=== PATIENT | male | born 1995 | race African-American/Black ===

== ENCOUNTER 2023-02-18 21:44 | Emergency (ER) | payer MEDICARE, SELFPAY ==
--- NOTE | 2023-02-18 | ECG_ITS ---
Test Reason : DYSPNEA Blood Pressure : / mmHG Vent. Rate : 101 BPM Atrial Rate : 101 BPM P-R Int : 148 ms QRS Dur : 088 ms QT Int : 336 ms P-R-T Axes : 042 039 023 degrees QTc Int : 435 ms Sinus tachycardia Nonspecific T wave abnormality Abnormal ECG No previous ECGs available Referred By: Generic ED Physician Electronically Signed By:LENKA SANCHEZ MD
--- NOTE | ~2023-02-18 | XR_ITS ---
EXAMINATION: XR CHEST CLINICAL INFORMATION: Cough COMPARISON: None available. TECHNIQUE: Frontal view of the chest was obtained. FINDINGS: The lungs are well expanded. There is no focal consolidation, edema, or effusion. No pneumothorax. The cardiomediastinal silhouette is within normal limits. No acute osseous abnormality. XR/XR chest 1V IMPRESSION: No acute pulmonary disease.
[2023-02-18 21:55] VITALS: BP 150/87; PULSE 98; O2SAT 97
[2023-02-18 22:30] VITALS: BP 123/72; PULSE 106; RESP 22; TEMP 36; O2SAT 94; BMI 32.1
[2023-02-18 23:35] LABS: MANUAL DIFF FLAG NO
[2023-02-18 23:37] LABS: Basophils Absolute Auto 0.1 X10*3/uL (0.0-0.2); Basophils Percent Auto 1.4 % (0-2); Eosinophils Absolute Auto 0.3 X10*3/uL (0.0-0.4); Eosinophils Percent Auto 4.7 % (0-4); Hematocrit 44.5 % (42.0-52.0); Hemoglobin 13.7 g/dl (14.0-18.0); Imm Gran Abs Auto 0.02 X10*3/uL (0.00-0.03); Imm Gran Pct Auto 0.3 % (0.0-0.4); Lymphocytes Absolute Auto 2.6 X10*3/uL (1.2-4.9); Lymphocytes Percent Auto 35.9 % (20-40); Mean Corpuscular HGB Conc 30.8 g/dl (31.0-36.0); Mean Corpuscular Hemoglobin 26.2 pg (27.0-33.0); Mean Corpuscular Volume 85.2 fL (80.0-98.0); Mean Platelet Volume 10.6 fL (9.4-12.4); Monocytes Absolute Auto 0.6 X10*3/uL (0.1-1.2); Monocytes Percent Auto 7.6 % (2-11); Neutrophils Absolute Auto 3.7 x10*3/uL (2.0-8.3); Neutrophils Percent Auto 50.1 % (45-73); Platelet Count 299 X10*3/uL (160-400); Red Blood Count 5.22 X10*6/uL (4.60-5.80); Red Cell Distribution Width 13.5 % (11.0-16.0); White Blood Count 7.3 X10*3/uL (4.8-10.8)
[2023-02-18 23:52] LABS: Alanine Aminotransferase 32 U/L (0-40); Alkaline Phosphatase 71 U/L (39-117); Anion Gap 15 (12-20); Aspartate Amino Transferase 37 U/L (5-37); Bilirubin Total 0.6 mg/dL (0.0-1.0); Blood Urea Nitrogen 12 mg/dL (9-16); Calcium 9.5 mg/dL (8.4-10.2); Carbon Dioxide 22 mmol/L (22-29); Chloride 102 mmol/L (96-108); Creatinine Clr Calc Pharmacy 136.5; Estimated Glomerular Filt Rate > 60; Glucose Random 246 mg/dL (60-115); Potassium 4.3 mmol/L (3.3-5.1); Sodium 135 mmol/L (135-145); Total Protein 7.5 g/dL (6.5-8.0)
[2023-02-19 03:23] VITALS: BP 115/75; PULSE 96; RESP 16; TEMP 36.6; O2SAT 98
[2023-02-19 03:28] LABS: Glucose, Whole Blood 208 mg/dL (60-115)
--- NOTE | 2023-02-19 03:44 | ED.URI ---
HPI - URI/Sore Throat General Chief Complaint: Dyspnea Stated Complaint: chest pain and throat pain, pt is deaf, per ems Time Seen by Provider: 02/19/23 03:43 Source: patient Mode of arrival: ambulatory Limitations: language barrier History of Present Illness HPI Narrative: Patient with history of diabetes hypertension asthma out of his inhaler been coughing for last 1 month says nothing works for him cough is mostly dry fissured has gained about 20 lb in the last few months denies any sleep apnea no fever no chills Related Data Previous Rx's Medication Instructions Recorded albuterol sulfate 90 mcg/actuation 2 puff inhalation Q4-6H PRN 02/19/23 aerosol inhaler (ProAir HFA) bronchospasm #8.5 grams benzonatate 200 mg capsule 200 mg PO TID PRN cough #30 caps 02/19/23 prednisone 20 mg tablet 40 mg PO DAILY #10 tabs 02/19/23 Allergies Allergy/AdvReac Type Severity Reaction Status Date / Time No Known Allergies Allergy Verified 02/18/23 22:46 Review of Systems Review of Systems: Yes all other systems are reviewed and are negative [facility] Social History Social History Alcohol intake: never Smoked in Last 30 Days: No Use of substances other than those prescribed or required for medical reasons: No Advance Directives: No Advance Directives Information Provided: Yes Physical Exam Vital Signs: Vital Signs: Last Vital Signs Temp 98.8 F 02/19/23 05:10 Pulse 100 02/19/23 05:10 Resp 18 02/19/23 05:10 BP 127/87 02/19/23 05:10 Pulse Ox 98 02/19/23 05:10 O2 Del Method Room Air 02/19/23 05:10 BMI result Body Mass Index 32.1 Appearance: Alert. Oriented X3. No acute distress. Eyes: PERRLA, No Nystagmus ENT: Pharynx normal. Oral Mucosa moist Neck: Normal inspection. Neck supple. CVS: Normal heart rate and rhythm. Pulses normal. Respiratory: No respiratory distress. Equal air entry bilateral, prolonged expiration no rales frequent dry cough Abdomen: Soft and nontender. Bowel sounds are present, no mass palpable, no CVA tenderness Skin: Skin warm and dry. Normal skin color. Normal skin turgor. Extremities: No lower extremity edema. No calf tenderness Neuro: Oriented X 3. Medications Administered Discontinued Medications Generic Name Dose Route Start Last Admin Trade Name Jeronimo PRN Reason Stop Dose Admin Albuterol Sulfate 5 mg 02/19/23 03:44 02/19/23 04:21 Albuterol Sulfate (0.083%) 2.5 Mg/3 Ml Vial.Neb INHALE 02/19/23 03:45 5 mg ONCE ONE Administration Albuterol/Ipratropium 3 ml 02/19/23 03:44 02/19/23 04:21 Albuterol/Iprat 2.5/0.5mg 3 Ml Ampul.Neb INHALE 02/19/23 03:45 3 ml ONCE ONE Administration Guaifenesin/Codeine Phosphate 10 ml 02/19/23 03:45 02/19/23 04:00 Guaifen/Codeine Sf 200/20/10ml 10 Ml Liquid PO 02/19/23 03:46 10 ml ONCE ONE Administration Prednisone 60 mg 02/19/23 03:44 02/19/23 04:00 Prednisone 20 Mg Tablet PO 02/19/23 03:45 60 mg ONCE ONE Administration Medical Decision Making Medical Decision Making MDM Narrative: Patient acute asthmatic bronchitis chest x-ray labs are stable discharge patient home on prednisone and albuterol inhaler Lab Data [facility] Lab Attestation statement: I reviewed the patient's lab results. 02/18/23 23:29 02/18/23 23:29 Labs: Lab Results 02/18/23 02/18/23 02/19/23 Range/Units 23:29 23:29 03:22 WBC 7.3 (4.8-10.8) X10*3/uL RBC 5.22 (4.60-5.80) X10*6/uL Hgb 13.7 L (14.0-18.0) g/dl Hct 44.5 (42.0-52.0) % MCV 85.2 (80.0-98.0) fL MCH 26.2 L (27.0-33.0) pg MCHC 30.8 L (31.0-36.0) g/dl RDW 13.5 (11.0-16.0) % Plt Count 299 (160-400) X10*3/uL MPV 10.6 (9.4-12.4) fL Immature Gran % (Auto) 0.3 (0.0-0.4) % Neut % (Auto) 50.1 (45-73) % Lymph % (Auto) 35.9 (20-40) % Day % (Auto) 7.6 (2-11) % Eos % (Auto) 4.7 H (0-4) % Baso % (Auto) 1.4 (0-2) % Lymph # (Auto) 2.6 (1.2-4.9) X10*3/uL Day # (Auto) 0.6 (0.1-1.2) X10*3/uL Eos # (Auto) 0.3 (0.0-0.4) X10*3/uL Baso # (Auto) 0.1 (0.0-0.2) X10*3/uL Abs Immat Gran (auto) 0.02 (0.00-0.03) X10*3/uL Absolute Neuts (auto) 3.7 (2.0-8.3) x10*3/uL Absolute Nucleated RBC 0.000 (0.0-0.012) X10*3/uL Nucleated RBC % (auto) 0.0 (0.0-0.2) /100WBC Sodium 135 (135-145) mmol/L Potassium 4.3 (3.3-5.1) mmol/L Chloride 102 (96-108) mmol/L Carbon Dioxide 22 (22-29) mmol/L Anion Gap 15 (12-20) BUN 12 (9-16) mg/dL Creatinine 0.99 (0.5-1.4) mg/dL Estim Creat Clear Calc 136.5 Estimated GFR > 60 POC Glucose 208 H (60-115) mg/dL Random Glucose 246 H (60-115) mg/dL Calcium 9.5 (8.4-10.2) mg/dL Total Bilirubin 0.6 (0.0-1.0) mg/dL AST 37 (5-37) U/L ALT 32 (0-40) U/L Alkaline Phosphatase 71 (39-117) U/L Total Protein 7.5 (6.5-8.0) g/dL Albumin 4.0 (3.5-5.0) g/dL Discharge Plan Discharge Clinical Impression: Acute asthmatic bronchitis Patient Disposition: Home, Self-Care Instructions: Acute Bronchitis (ED) Additional Instructions: Use inhaler as prescribed Prednisone as prescribed Your blood sugar may go high take insulin continue sliding scale Cough drops as prescribed Prescriptions: New albuterol sulfate [ProAir HFA] 90 mcg/actuation HFA aerosol inhaler 2 puff inhalation Q4-6H PRN (Reason: bronchospasm) Qty: 8.5 0RF benzonatate 200 mg capsule 200 mg PO TID PRN (Reason: cough) Qty: 30 0RF prednisone 20 mg tablet 40 mg PO DAILY Qty: 10 0RF Stand Alone Forms: Work/School Release
[2023-02-19] MEDS: predniSONE 20 MG TABLET 60 MG PO (04:00)
[2023-02-19] MEDS: guaiFEN/Codeine SF 200/20/10ML 10 ML LIQUID PO (04:00)
--- NOTE | 2023-02-19 04:01 | PC.NURSE ---
patient in bed with eyes open patient showing no distress at this time patient received all medications with no issues respiratory was notified about tje patient needing a breathing treatment safety will continue to be monitored for safety
[2023-02-19] MEDS: Albuterol/Iprat 2.5/0.5MG 3 ML AMPUL.NEB INHALE (04:21)
[2023-02-19] MEDS: Albuterol Sulfate (0.083%) 2.5 MG/3 ML VIAL.NEB 5 MG INHALE (04:21)
[2023-02-19 04:22] VITALS: PULSE 101; RESP 20; O2SAT 97
[2023-02-19 05:10] VITALS: BP 127/87; PULSE 100; RESP 18; TEMP 37.1; O2SAT 98
== END 2023-02-19 05:54 | disposition home or self-care (01) ==
PROVIDERS: Emergency Provider Internal Medicine
DX: J20.9 Acute bronchitis, unspecified (principal); E11.9 Type 2 diabetes mellitus without complications; I10 Essential (primary) hypertension; Z79.899 Other long term (current) drug therapy
CPT/HCPCS: 36415; 71045; 80053; 82947; 85025; 93005; 94640; 99284; 99285

== ENCOUNTER → 2023-02-18 23:13 | Outpatient (BNV) | payer MEDICARE, SELFPAY | PROVIDERS: Emergency Provider Internal Medicine; Visit Provider Internal Medicine Cardiovascular Disease | DX: R06.00 Dyspnea, unspecified (principal) | CPT/HCPCS: 93010 ==

== ENCOUNTER 2023-03-22 09:16 | Emergency (ER) | payer MEDICARE, MEDICAID, SELFPAY ==
--- NOTE | ~2023-03-22 | CT_ITS ---
EXAMINATION: CT ANGIOGRAM OF THE CHEST WITH AND WITHOUT CONTRAST (CT PULMONARY ANGIOGRAM FOR PE) CLINICAL INFORMATION: Reason for Exam cp,sob hx of pe COMPARISON: None available. TECHNIQUE: Prior to contrast administration, noncontrast localization images were obtained. Subsequently, multidetector volumetric imaging was performed from the thoracic inlet to below the diaphragms following the administration of 80 mL Omnipaque 350 intravenous contrast. No contrast reaction reported Sagittal, coronal, and MIP oblique sagittal reformatted images were obtained on the CT workstation, uploaded to PACS, and reviewed. This CT examination was performed using dose optimization techniques as appropriate, variously including the following: *Automated exposure control *Adjustment of mA and/or kV according to patient size (this includes techniques or standardized protocols for targeted exams where dose is matched to indication/reason for exam; i.e. extremities or head) *Use of iterative reconstruction technique Total exam dose-length product mGy-cm FINDINGS: QUALITY OF STUDY/CONTRAST BOLUS: Limited due to late timing of IV contrast. PULMONARY ARTERIES: No evidence of large or central pulmonary embolism. Evaluation of smaller segmental and subsegmental pulmonary arteries is not not optimal due to timing of IV contrast. THORACIC AORTA: No aneurysm. LUNG: No focal consolidation, nodules or masses. PLEURA: No pleural effusion or pneumothorax. MEDIASTINUM: Normal heart size. No pericardial effusion. No hilar or mediastinal lymphadenopathy. No evidence of septal bowing or right heart strain. CORONARY ARTERY CALCIFICATION: None visualized on this study. CHEST WALL/AXILLA: No axillary or internal mammary lymphadenopathy. OSSEOUS STRUCTURES: No acute or suspicious osseous abnormality. UPPER ABDOMEN: There may be fatty infiltration of the liver. No reflux of contrast into the hepatic veins to suggest elevated right heart pressures. CT/CT angio chest PE protocol IMPRESSION: No evidence of large or central pulmonary embolism. Exam somewhat limited due to late timing of IV contrast. VTE: negative
[2023-03-22 09:19] VITALS: BP 118/82; PULSE 94; O2SAT 96
[2023-03-22 09:23] VITALS: PULSE 86; RESP 18; TEMP 36.7; O2SAT 97; BMI 37.7
--- NOTE | 2023-03-22 09:26 | ECG_ITS ---
Test Reason : CHEST PX Blood Pressure : / mmHG Vent. Rate : 089 BPM Atrial Rate : 089 BPM P-R Int : 144 ms QRS Dur : 104 ms QT Int : 330 ms P-R-T Axes : 129 132 000 degrees QTc Int : 401 ms Suspect limb lead reversal, interpretation assumes no reversal Unusual P axis, possible ectopic atrial rhythm Lateral infarct , age undetermined Abnormal ECG When compared with ECG of 18-FEB-2023 23:13, Ectopic atrial rhythm has replaced Sinus rhythm QRS axis Shifted right Referred By: Generic ED Physician Electronically Signed By:
--- NOTE | 2023-03-22 09:40 | PC.NURSE ---
video supervisor [employer] and shank department was presented to patient and patient stated he would prefer a in person tool programmer
--- NOTE | 2023-03-22 09:54 | PC.NURSE ---
industrial servicer services contacted to speak to patient abut getting patient an in person industrial servicer, with video industrial servicer. patient aware of situation and that in person industrial servicer is being contacted
--- NOTE | 2023-03-22 10:05 | PC.NURSE ---
reached out to the [place] commission of deaf and hard of hearing, spoke to teleservices representative chari, commission is reaching out to the areas [place] Citizen sign language interpreters on an emergency basis for an in person hourly sign language interpreter. video hourly sign language interpreter is on and at the patients bedside for his needs. phone number called is [phone]. patient has call gonzalez at bedside, explained using video interpretor how to work if patient needs assistance,
--- NOTE | 2023-03-22 10:08 | ED.CHESTPAIN ---
HPI - Chest Pain General Chief Complaint: Chest Pain Stated Complaint: sob Time Seen by Provider: 03/22/23 10:08 Source: patient and EMS Mode of arrival: EMS Limitations: other (government employee use) History of Present Illness HPI narrative: 27-year-old male hx of PE on elqiuis presents with substernal chest pain, shortness of breath started this morning. Chest pain is substernal, nonradiating sudden in onset but has been progressively worsening. Started when he was drinking water this morning after waking up. Reports as a burning/throbbing sensation. Nothing like this has ever happened to him before. Denies nausea, vomiting, abdominal pain, headache, vision changes, dizziness and weakness. Using the iPad recreation instructor however patient requesting an inpatient recreation instructor, nursing trying to work on getting an in-person recreation instructor here. Related Data Previous Rx's Medication Instructions Recorded albuterol sulfate 90 mcg/actuation 2 puff inhalation Q4-6H PRN 02/19/23 aerosol inhaler (ProAir HFA) bronchospasm #8.5 grams benzonatate 200 mg capsule 200 mg PO TID PRN cough #30 caps 02/19/23 prednisone 20 mg tablet 40 mg PO DAILY #10 tabs 02/19/23 aluminum-mag hydroxide-simethicone 5 ml PO 5XD PRN dyspepsia #355 mL 03/22/23 200 mg-200 mg-20 mg/5 mL oral susp (Maalox Advanced) Allergies Allergy/AdvReac Type Severity Reaction Status Date / Time No Known Allergies Allergy Verified 02/18/23 22:46 Review of Systems Review of Systems: Constitutional : No Weight loss, No Fever, No Chills, No Fatigue, No Malaise ENT/Mouth : No sore throat, No Rhinorrhea Eyes: No Eye Pain, No Swelling, No Redness Cardiovascular : + Chest Pain, + SOB, No Dyspnea on Exertion, No Orthopnea, No Edema, No Palpitations Respiratory : No Cough, No Sputum, No Wheezing Gastrointestinal : No Nausea, No Vomiting, No Diarrhea, No Constipation, No abdominal Pain, No Hematochezia, No Melena Genitourinary : No Dysuria, No Urinary Frequency, No Hematuria, Musculoskeletal : No joint pain, No Myalgias, No Joint Swelling Skin : No Skin Lesions, No rash Neuro : No Weakness, No Numbness, No Dizziness, No Headache Psych : No Anxiety/Panic, No Depression All other systems reviewed and are negative Yes all other systems are reviewed and are negative [facility] Past Medical History Attestation statement: The following information was validated with the patient. Source: old records reviewed and nursing notes reviewed Social History Social History Alcohol intake: never Smoked in Last 30 Days: No Use of substances other than those prescribed or required for medical reasons: No Advance Directives: No Advance Directives Information Provided: Yes Physical Exam Vital Signs: Vital Signs: Last Vital Signs Temp 98.4 F 03/22/23 15:04 Pulse 93 03/22/23 15:04 Resp 20 03/22/23 15:04 BP 96/58 L 03/22/23 15:04 Pulse Ox 95 03/22/23 15:04 O2 Del Method Room Air 03/22/23 15:04 BMI result Body Mass Index 37.7 vss Appearance: Alert.? Oriented X3.? No acute distress.? Head: Normocephalic, atraumatic, no step-offs or deformities Eyes: Pupils equal, round and reactive to light.? ENT: Pharynx normal.? Neck: Normal inspection.? Neck supple.? CVS: Normal heart rate and rhythm.? Pulses normal.? Respiratory: No respiratory distress.? Breath sounds normal.? Abdomen: Soft and nontender.? Skin: Skin warm and dry.? Normal skin color.? Normal skin turgor.? Extremities: No lower extremity edema.? No calf ttp. 5/5 strength to bilateral upper and lower extremities Neuro: Oriented X 3.? No motor deficit.? No sensory deficit. CN 2-12 intact Course Course Course Narrative: 1121 In person recreation instructor obtained- Chelsey Barragan in the department at 1121 for inperson ASL interpreting Reevaluation(s) Reevaluation #1: CBC appears to be around patient's baseline. Chemistry unremarkable. Troponin negative, EKG nonischemic unlikely ACS. BNP within normal limits. Patient anticoagulated on Eliquis low suspicion for PE. Unlikely dissection. Time: 11:00 Reevaluation #2: In-patient interpreted ASL arrived, patient now clarifies that the chest pain is substernal in nature, when he arrived pain was 7/10 now pain has improved to 5/10, he reports it goes up and down from the substernal region, not side to side, at times of burning sensation. He reports this started right when he woke up. He has had pain like this before. Patient also concerned about his kidney function because he is a diabetic and he is wondering if his kidney function is okay I explained to him that everything is okay. I took the time to answer all questions patient had with in-person recreation instructor. Patient content. Pending CTA patient aware plan. Time: 11:32 Reevaluation #3: Patient's 2nd troponin negative, patient EKG nonischemic unlikely ACS. CTA with no PTE, no PE noted. Patient anticoagulated. At this time patient will be discharged home. Patient tells me he is feeling much better pain has resolved. Educated patient on diagnosis and treatment plan, answered all question, patient verbalizes understanding. At this time patient will be discharged home, advised to return with new or worsening symptoms. Educated on worrisome signs and symptoms and when to return. At this time I feel comfortable discharge home. Time: 15:19 Medications Administered Discontinued Medications Generic Name Dose Route Start Last Admin Trade Name Pedroq PRN Reason Stop Dose Admin Al Hydroxide/Mg Hydroxide 30 ml 03/22/23 10:09 03/22/23 10:23 Magnesium Hydrox/Alum Hydrox 30 Ml Oral.Susp PO 03/22/23 10:10 30 ml ONCE ONE Administration Iohexol 65 ml 03/22/23 13:15 03/22/23 13:15 Iohexol 350 Mg/Ml 75 Ml Infus..Btl IV 03/22/23 13:16 65 ml ONCE ONE Administration Morphine Sulfate 4 mg 03/22/23 10:24 03/22/23 10:43 Morphine Sulfate 4 Mg/Ml Cartridge IVPUSH 03/22/23 10:25 4 mg ONCE ONE Administration Protocol Medical Decision Making Medical Decision Making [facility] Narrative: 1005 27-year-old male presents with complaints of substernal chest pain, shortness of breath that started this morning. Describes chest pain as burning. An recreation instructor for [place] sign language was used Physical exam benign Likely GERD versus noncardiac related chest pain versus anxiety versus viral illness. Unlikely ACS, PE (perc negative), dissection, ruptured aneurysm, pneumothorax, pneumonia. Plan labs, imaging, EKG. Differential Diagnosis Differential Diagnoses: The differential diagnosis associated with the presentation includes Likely GERD versus noncardiac related chest pain versus anxiety versus viral illness. Unlikely ACS, PE (perc negative), dissection, ruptured aneurysm, pneumothorax, pneumonia. Admission/Observation Consideration of admission/observation: Escalation of care including admission/observation considered Unlikely Lab Data MDM Lab Attestation statement: I reviewed the patient's lab results. 03/22/23 10:17 03/22/23 10:17 Labs: Lab Results 03/22/23 03/22/23 03/22/23 Range/Units 10:17 10:17 10:17 WBC 4.4 L (4.8-10.8) X10*3/uL RBC 5.28 (4.60-5.80) X10*6/uL Hgb 13.9 L (14.0-18.0) g/dl Hct 42.3 (42.0-52.0) % MCV 80.1 (80.0-98.0) fL MCH 26.3 L (27.0-33.0) pg MCHC 32.9 (31.0-36.0) g/dl RDW 14.3 (11.0-16.0) % Plt Count 264 (160-400) X10*3/uL MPV 10.2 (9.4-12.4) fL Immature Gran % (Auto) 0.2 (0.0-0.4) % Neut % (Auto) 48.1 (45-73) % Lymph % (Auto) 36.8 (20-40) % [place] % (Auto) 8.5 (2-11) % Eos % (Auto) 5.3 H (0-4) % Baso % (Auto) 1.1 (0-2) % Lymph # (Auto) 1.6 (1.2-4.9) X10*3/uL [place] # (Auto) 0.4 (0.1-1.2) X10*3/uL Eos # (Auto) 0.2 (0.0-0.4) X10*3/uL Baso # (Auto) 0.1 (0.0-0.2) X10*3/uL Abs Immat Gran (auto) 0.01 (0.00-0.03) X10*3/uL Absolute Neuts (auto) 2.1 (2.0-8.3) x10*3/uL Absolute Nucleated RBC 0.000 (0.0-0.012) X10*3/uL Nucleated RBC % (auto) 0.0 (0.0-0.2) /100WBC Sodium 140 (135-145) mmol/L Potassium 4.1 (3.3-5.1) mmol/L Chloride 108 (96-108) mmol/L Carbon Dioxide 22 (22-29) mmol/L Anion Gap 14 (12-20) BUN 9 (9-16) mg/dL Creatinine 0.96 (0.5-1.4) mg/dL Estim Creat Clear Calc 152.5 Estimated GFR > 60 POC Glucose (60-115) mg/dL Random Glucose 172 H (60-115) mg/dL Calcium 9.7 (8.4-10.2) mg/dL Total Bilirubin 0.6 (0.0-1.0) mg/dL AST 30 (5-37) U/L ALT 31 (0-40) U/L Alkaline Phosphatase 66 (39-117) U/L Troponin I High Sens < 2.7 (<3.5-35.0) ng/L B-Natriuretic Peptide (<100) pg/mL Total Protein 7.3 (6.5-8.0) g/dL Albumin 4.3 (3.5-5.0) g/dL 03/22/23 03/22/23 03/22/23 Range/Units 10:19 13:20 14:08 WBC (4.8-10.8) X10*3/uL RBC (4.60-5.80) X10*6/uL Hgb (14.0-18.0) g/dl Hct (42.0-52.0) % MCV (80.0-98.0) fL MCH (27.0-33.0) pg MCHC (31.0-36.0) g/dl RDW (11.0-16.0) % Plt Count (160-400) X10*3/uL MPV (9.4-12.4) fL Immature Gran % (Auto) (0.0-0.4) % Neut % (Auto) (45-73) % Lymph % (Auto) (20-40) % [place] % (Auto) (2-11) % Eos % (Auto) (0-4) % Baso % (Auto) (0-2) % Lymph # (Auto) (1.2-4.9) X10*3/uL [place] # (Auto) (0.1-1.2) X10*3/uL Eos # (Auto) (0.0-0.4) X10*3/uL Baso # (Auto) (0.0-0.2) X10*3/uL Abs Immat Gran (auto) (0.00-0.03) X10*3/uL Absolute Neuts (auto) (2.0-8.3) x10*3/uL Absolute Nucleated RBC (0.0-0.012) X10*3/uL Nucleated RBC % (auto) (0.0-0.2) /100WBC Sodium (135-145) mmol/L Potassium (3.3-5.1) mmol/L Chloride (96-108) mmol/L Carbon Dioxide (22-29) mmol/L Anion Gap (12-20) BUN (9-16) mg/dL Creatinine (0.5-1.4) mg/dL Estim Creat Clear Calc Estimated GFR POC Glucose 85 (60-115) mg/dL Random Glucose (60-115) mg/dL Calcium (8.4-10.2) mg/dL Total Bilirubin (0.0-1.0) mg/dL AST (5-37) U/L ALT (0-40) U/L Alkaline Phosphatase (39-117) U/L Troponin I High Sens < 2.7 (<3.5-35.0) ng/L B-Natriuretic Peptide < 10 (<100) pg/mL Total Protein (6.5-8.0) g/dL Albumin (3.5-5.0) g/dL Independent Interpretation I performed an independent interpretation of an: EKG (Ventricular rate of 89, MO normal, QRS normal, QT/QTC normal EKG with normal sinus rhythm no ST elevations or inversions concerning for acute ischemia.), Plain X-Ray and CT Scan Radiology Impression Discussion of test interpretation with radiology: I have reviewed the radiologist's reading. Core Measures AMI core measures followed: Yes Measure exclusions: not indicated Critical Care Time Critical Care Time Critical Care Time: Yes Total Critical Care Time: 35 Attestation: I attest to this time spent taking care of the patient, obtaining history, physical, reviewing labs, imaging, speaking to my attending, Discharge Plan Discharge Clinical Impression: Chest pain, Shortness of breath, Gastroesophageal reflux disease Patient Disposition: Still a Patient Instructions: Chest Pain (ED), Gastroesophageal Reflux Disease (ED), Shortness of Breath (ED) Additional Instructions: Take your medications as prescribed. If you were prescribed antibiotics today, it is important that you take your medication to their entirety, do not skip any doses, do not finish them early. Follow-up with your primary care provider this week. Return to the emergency department with new or worsening symptoms. Such as fevers, chills, chest pain, shortness of breath, nausea, vomiting, dizziness, headache, vision changes, lethargy In case of emergency call 911 ?CT/CT angio chest PE protocol IMPRESSION: No evidence of large or central pulmonary embolism. Exam somewhat limited due to late timing of IV contrast. ? VTE: negative Prescriptions: New alum-mag hydroxide-simeth [Maalox Advanced] 200-200-20 mg/5 mL suspension 5 ml PO 5XD PRN (Reason: dyspepsia) Qty: 355 0RF Rx Instructions: administer between meals and at bedtime No Action albuterol sulfate [ProAir HFA] 90 mcg/actuation HFA aerosol inhaler 2 puff inhalation Q4-6H PRN (Reason: bronchospasm) Qty: 8.5 0RF benzonatate 200 mg capsule 200 mg PO TID PRN (Reason: cough) Qty: 30 0RF prednisone 20 mg tablet 40 mg PO DAILY Qty: 10 0RF Referrals: [facility] [place] Cardiovascular Services [Provider Group] - 2 days Physician,Unknown J [Primary Care Provider] - 2 days Stand Alone Forms: Work/School Release
--- NOTE | 2023-03-22 10:10 | MHC.EDTECH ---
patient agreeable to lab work and EKG while in person parking lot spotter being contacted, patient consents to plan of care with video paving crew foreman
--- NOTE | 2023-03-22 10:18 | PC.NURSE ---
patient agreeable to lab work and EKG while in person launch leader being contacted, patient consents to plan of care with video thread clipper
--- NOTE | 2023-03-22 10:18 | PC.NURSE ---
Chelly from [place] [employer] of deaf and hard of hearing, called and spoke to this RN about contacts being made to get patient an in person accountant cost
[2023-03-22 10:23] LABS: Basophils Absolute Auto 0.1 X10*3/uL (0.0-0.2); Basophils Percent Auto 1.1 % (0-2); Eosinophils Absolute Auto 0.2 X10*3/uL (0.0-0.4); Eosinophils Percent Auto 5.3 % (0-4); Hematocrit 42.3 % (42.0-52.0); Hemoglobin 13.9 g/dl (14.0-18.0); Imm Gran Abs Auto 0.01 X10*3/uL (0.00-0.03); Imm Gran Pct Auto 0.2 % (0.0-0.4); Lymphocytes Absolute Auto 1.6 X10*3/uL (1.2-4.9); Lymphocytes Percent Auto 36.8 % (20-40); MANUAL DIFF FLAG NO; Mean Corpuscular HGB Conc 32.9 g/dl (31.0-36.0); Mean Corpuscular Hemoglobin 26.3 pg (27.0-33.0); Mean Corpuscular Volume 80.1 fL (80.0-98.0); Mean Platelet Volume 10.2 fL (9.4-12.4); Monocytes Absolute Auto 0.4 X10*3/uL (0.1-1.2); Monocytes Percent Auto 8.5 % (2-11); Neutrophils Absolute Auto 2.1 x10*3/uL (2.0-8.3); Neutrophils Percent Auto 48.1 % (45-73); Platelet Count 264 X10*3/uL (160-400); Red Blood Count 5.28 X10*6/uL (4.60-5.80); Red Cell Distribution Width 14.3 % (11.0-16.0); White Blood Count 4.4 X10*3/uL (4.8-10.8)
[2023-03-22] MEDS: Magnesium Hydrox/Alum Hydrox 30 ML ORAL.SUSP PO (10:23)
[2023-03-22 10:40] LABS: Alanine Aminotransferase 31 U/L (0-40); Albumin Level 4.3 g/dL (3.5-5.0); Alkaline Phosphatase 66 U/L (39-117); Anion Gap 14 (12-20); Aspartate Amino Transferase 30 U/L (5-37); Bilirubin Total 0.6 mg/dL (0.0-1.0); Blood Urea Nitrogen 9 mg/dL (9-16); Calcium 9.7 mg/dL (8.4-10.2); Carbon Dioxide 22 mmol/L (22-29); Chloride 108 mmol/L (96-108); Creatinine Clr Calc Pharmacy 152.5; Estimated Glomerular Filt Rate > 60; Glucose Random 172 mg/dL (60-115); Potassium 4.1 mmol/L (3.3-5.1); Sodium 140 mmol/L (135-145); Total Protein 7.3 g/dL (6.5-8.0)
[2023-03-22] MEDS: Morphine Sulfate 4 MG/ML CARTRIDGE IVPUSH (10:43)
--- NOTE | 2023-03-22 10:46 | PC.NURSE ---
IV line placed with ASL video manager copy at bedside
[2023-03-22 10:48] LABS: Troponin-I High Sensitivity < 2.7 ng/L (<3.5-35.0)
[2023-03-22 10:48] LABS: B Type Natriuretic Peptide < 10 pg/mL (<100)
--- NOTE | 2023-03-22 10:53 | PC.NURSE ---
sales and management trainee services notified this RN that an movable bulkhead installer is on their way
--- NOTE | 2023-03-22 11:23 | PC.NURSE ---
in person title one teacher at bedside, nikky Barragan
[2023-03-22 12:19] VITALS: BP 98/62; PULSE 86; RESP 16; TEMP 36.7; O2SAT 98
[2023-03-22] MEDS: iohexoL 350 MG/ML 75 ML INFUS..BTL 65 ML IV (13:15)
[2023-03-22 13:23] LABS: Glucose, Whole Blood 85 mg/dL (60-115)
--- NOTE | 2023-03-22 13:29 | PC.NURSE ---
PT RESTING IN ROOM REMAINS IN SR ON THE MONITOR AWAITING CT RESULTS. PT POC 85MG/DL HE IS ASKIGN TO EAT.
[2023-03-22 14:59] LABS: Troponin-I High Sensitivity < 2.7 ng/L (<3.5-35.0)
[2023-03-22 15:04] VITALS: BP 96/58; PULSE 93; RESP 20; TEMP 36.9; O2SAT 95
== END 2023-03-22 16:29 | disposition home or self-care (01) ==
PROVIDERS: Physician Assistant; Emergency Provider Emergency Medicine Emergency Medical Services
DX: R07.89 Other chest pain (principal); R06.02 Shortness of breath; K21.9 Gastro-esophageal reflux disease without esophagitis; Z79.01 Long term (current) use of anticoagulants; Z86.711 Personal history of pulmonary embolism; Z79.899 Other long term (current) drug therapy
CPT/HCPCS: 36415; 71275; 80053; 82947; 83880; 84484; 85025; 93005; 99284; 99285; J2270; Q9967

== ENCOUNTER 2023-05-03 09:38 | Outpatient (REF) | payer MEDICARE, SELFPAY | END 2023-05-03 09:39 | disposition home or self-care (01) | LOC: HO.LAB 09:38 | PROVIDERS: Visit Provider Family Medicine Adult Medicine | DX: E11.9 Type 2 diabetes mellitus without complications (principal) | CPT/HCPCS: 36415; 80053; 83036 ==

== ENCOUNTER 2023-06-17 03:39 | Emergency (ER) | payer MEDICARE, MEDICAID, SELFPAY ==
--- NOTE | 2023-06-17 | ECG_ITS ---
Test Reason : POSSIBLE DKA Blood Pressure : / mmHG Vent. Rate : 100 BPM Atrial Rate : 100 BPM P-R Int : 142 ms QRS Dur : 088 ms QT Int : 332 ms P-R-T Axes : 048 049 034 degrees QTc Int : 428 ms Sinus tachycardia Otherwise normal ECG When compared with ECG of 22-MAR-2023 09:35, No significant change was found Referred By: Generic ED Physician Electronically Signed By:WENDY MERCER MD
--- NOTE | ~2023-06-17 | CT_ITS ---
EXAMINATION: CT ANGIOGRAM HEAD-NECK CLINICAL INFORMATION: Visual changes and floaters in both eyes. COMPARISON: None available. TECHNIQUE: Test bolus sequences followed by intravenous administration 100 mL of Omnipaque 350 intravenous contrast. The contrast enhanced multidetector CT imaging was performed from the mediastinum to the skull vertex. Delayed postcontrast imaging of the head was subsequently performed. The data was processed at the ct technologist's workstation for generation of MIP sequences. Three-dimensional volume rendered reformatted images were generated on an offline 3-D workstation. Note that any estimates of vascular stenosis are based on criteria similar to NASCET. This CT examination was performed using dose optimization techniques as appropriate, variously including the following: *Automated exposure control. *Adjustment of mA and/or kV according to patient size (this includes techniques or standardized protocols for targeted exams where dose is matched to indication/reason for exam; i.e. extremities or head). *Use of iterative reconstruction technique. DLP: 2416 mGy-cm. FINDINGS: HEAD: Brain parenchyma has normal attenuation. No intracranial mass, cerebral edema, hemorrhage, extraaxial fluid collection or midline shift. The ventricles and sulci are normal in size and configuration. The orbits, globes and temporomandibular joints are unremarkable. Incidentally noted is mucosal thickening of frontal, bilateral ethmoid and maxillary sinuses without air-fluid levels. The mastoid air cells are well aerated. Prior right mastoidectomy. Streak artifact produced by cochlear implant associated hardware overlying the right calvarium and intact wire/electrode seen traveling through the right mastoid to the cochlea. SOFT TISSUES AND LUNG APICES: Lung apices are unremarkable. No fluid collection, soft tissue mass or lymphadenopathy in the neck. NECK CTA: The aortic arch is normal and the arch vessel origins are widely patent. The vertebral arteries are co-dominant and both vertebral origins are widely patent. Both common carotid arteries are normal in course and caliber. Both internal carotid arteries are widely patent and without evidence of stenosis. CRANIAL CTA: There is normal opacification of the major intracranial vessels. The petrous, cavernous and supraclinoid segments of the ICAs are widely patent. The intradural segments of the vertebral arteries and basilar artery are patent. No acute proximal large vessel occlusion, flow-limiting stenosis or saccular intracranial aneurysm. No abnormal parenchymal enhancement or regional oligemia. No evidence of dural venous sinus thrombosis. CT/CT angio head neck IMPRESSION: No intracranial hemorrhage. There is no acute intracranial pathology. No evidence of vascular stenosis, occlusion or major vascular territory infarction.
[2023-06-17 03:40] VITALS: BP 120/79; PULSE 104; RESP 20; TEMP 36.8; O2SAT 98; BMI 46.0
[2023-06-17 04:03] LABS: Glucose, Whole Blood 310 mg/dL (60-115)
--- NOTE | 2023-06-17 04:12 | ED.GENADULT ---
HPI - General Adult General Chief complaint: General Medical Stated complaint: vision change, SoB Time Seen by Provider: 06/17/23 03:59 Source: patient and other Mode of arrival: ambulatory Limitations: other History of Present Illness HPI narrative: History obtained via snowboard designer. Patient Comes to the emergency room complaining of chest pressure, high blood sugar, visual changes. Patient is known to be diabetic. Patient states that approximately 2 hours ago, patient was sitting watching TV, started having visual changes. Patient states that he is seeing black spots in all visual truong from both eyes. Patient has been evaluated previously in the ED for chest pain/pressure. Related Data Previous Rx's Medication Instructions Recorded albuterol sulfate 90 mcg/actuation 2 puff inhalation Q4-6H PRN 02/19/23 aerosol inhaler (ProAir HFA) bronchospasm #8.5 grams benzonatate 200 mg capsule 200 mg PO TID PRN cough #30 caps 02/19/23 prednisone 20 mg tablet 40 mg (2 x 20 mg) PO DAILY #10 tabs 02/19/23 aluminum-mag hydroxide-simethicone 5 ml PO 5XD PRN dyspepsia #355 mL 03/22/23 200 mg-200 mg-20 mg/5 mL oral susp (Maalox Advanced) Allergies Allergy/AdvReac Type Severity Reaction Status Date / Time No Known Allergies Allergy Verified 06/17/23 03:50 Review of Systems Review of Systems: Constitutional : No Weight loss, No Fever, No Chills, No Night Sweats, No Fatigue, No Malaise ENT/Mouth : No Hearing loss, No Ear Pain, No Nasal Congestion, No Sinus Pain, No Hoarseness, No sore throat, No Rhinorrhea, No Swallowing Difficulty Eyes: No Eye Pain, No Swelling, No Redness, No Foreign Body, No Discharge, complaining of intermittent visual changes, black spots in all truong in both eyes, no pain. eye pressure R eye 19mmHg, left eye 18mmHg Cardiovascular : Complaining of chest pressure without Chest Pain, No SOB, No Dyspnea on Exertion, No Orthopnea, No Edema, No Palpitations Respiratory : No Cough, No Sputum, No Wheezing, No Smoke Exposure, No Dyspnea Gastrointestinal : No Nausea, No Vomiting, No Diarrhea, No Constipation, No abdominal Pain, No Hematochezia, No Melena Genitourinary : no irregular bleeding, No Dysuria, No Urinary Frequency, No Hematuria, No Urinary Incontinence, No Urgency, No Flank Pain, No Urinary Flow Changes, No Hesitancy Musculoskeletal : No joint pain, No Myalgias, No Joint Swelling Skin : No Skin Lesions, No rash Neuro : No Weakness, No Numbness, No Paresthesias, No Loss of Consciousness, No Dizziness, No Headache Psych : No Anxiety/Panic, No Depression, No SI/HI/AH/VH, No Social Issues, Heme/Lymph: No Bruising, No Bleeding,No Lymphadenopathy Endocrine : No Polyuria, No Polydipsia, No Temperature Intolerance [facility] Social History Social History Alcohol intake: never Smoked in Last 30 Days: No Use of substances other than those prescribed or required for medical reasons: No Advance Directives: No Advance Directives Information Provided: No Physical Exam ED Vital Signs: Vital Signs - 24 hr 06/17/23 03:40 06/17/23 05:56 06/17/23 08:18 Temperature 98.2 F 98.2 F Pulse Rate 104 H 100 96 Respiratory Rate 20 18 15 Blood Pressure 120/79 121/71 100/52 L Pulse Oximetry 98 98 96 Oxygen Delivery Method Room Air Room Air 06/17/23 11:20 Temperature Pulse Rate 96 Respiratory Rate 16 Blood Pressure 123/76 Pulse Oximetry 97 Oxygen Delivery Method Room Air BMI result Body Mass Index 46.0 Const Other: Appearance: Alert. Oriented X3. No acute distress. Eyes: Pupils equal, round and reactive to light. On bedside ultrasound of both eyes, there is no obvious sign of retinal detachment bilaterally ENT: Pharynx normal. Neck: Normal inspection. Neck supple. No lymph nodes noted. No crepitus CVS: Normal heart rate and rhythm. Pulses normal. Normal S1 and S2 Respiratory: No respiratory distress. Breath sounds normal. No Wheezing. No rales Abdomen: Soft and nontender. No rigidity. No distention. Skin: Skin warm and dry. Normal skin color. Normal skin turgor. Extremities: No lower extremity edema. No Lacerations. No Rash Neuro: Oriented X 3. No motor deficit. No sensory deficit. Moving all extremities. No slurred speech. CN 2 through 12 grossly intact Psych: calm, cooperative, normal affect Course Course Course Narrative: -discussed with the patient we will obtain labs, patient may need fluids and insulin to help the glucose levels come down -discussed with the patient that we will scan his head and neck with contrast -patient agreeable with plan Reevaluation(s) Reevaluation #1: [address] AM S[address] out to Dr Dc. Reexamined spoke with him with snowboard designer,states he is feeling better ,state that he feel dehydrated vision better Time: 07:46 Reevaluation #2: 10 AM Pt is now requesting a life diplomatic interpreter/translator,he does not want to talk to video diplomatic interpreter/translator anymore,spoke with charge nurse will try to get life diplomatic interpreter/translator. Time: 10:06 Reevaluation #3: Sammarinese sign language here now pt is feeling better his blurry vision is better ,mostlikely because he was hyperglycemic,he ate lunch . He does not have A PCP locally nor internal grinder tender,I explained that diabetic pt can get diabetic retinopathy and need regular retinal exam . I will give also an ophtalmologist numer as well. All questions answer with Sammarinese sign language will d/c home Time: 13:20 Medications Administered Discontinued Medications Generic Name Dose Route Start Last Admin Trade Name Jeronimo PRN Reason Stop Dose Admin Sodium Chloride 1,000 mls @ 999 mls/hr 06/17/23 04:47 06/17/23 10:02 Ns IVCONT 06/17/23 05:47 Infused .Q1H1M ONE Infusion Sodium Chloride 1,000 mls @ 999 mls/hr 06/17/23 07:45 06/17/23 10:02 Ns IVCONT 06/17/23 08:45 Infused .Q1H1M MIRIAM Infusion Insulin Human Regular 10 unit 06/17/23 04:47 06/17/23 05:03 Insulin Regular, Human 100 Unit/Ml 3 Ml Vial IVPUSH 06/17/23 04:48 10 unit ONCE ONE Administration Iohexol 70 ml 06/17/23 05:29 06/17/23 05:30 Iohexol 350 Mg/Ml 100 Ml Infus..Btl IV 06/17/23 05:30 70 ml ONCE ONE Administration Medical Decision Making Medical Decision Making [facility] Narrative: -my interpretation of labs, normal hematology, chemistry unremarkable, glucose improved from 328-212 after IV fluids and 10 units of insulin. Troponin negative, beta hydroxybutyrate negative -CT scan of head and neck pending -patient states that the new spots in his vision or new. However, patient does accept that he does not take care of his glucose levels. Is possible the patient may be experiencing diabetic retinopathy. -patient CT scan still pending Eye pressure bilaterally within normal limits, acute angle closure not suspected Differential Diagnosis Differential Diagnoses: The differential diagnosis associated with the presentation includes (Retinal detachment, TIA, diabetic retinopathy) Admission/Observation Consideration of admission/observation: Escalation of care including admission/observation considered (Urine patient's multiple complaints on arrival, patient was considered) Lab Data MDM Lab Attestation statement: I reviewed the patient's lab results. 06/17/23 04:18 06/17/23 04:18 Labs: Lab Results 06/17/23 06/17/23 06/17/23 Range/Units 03:58 04:18 04:22 WBC 4.8 (4.8-10.8) X10*3/uL RBC 5.64 (4.60-5.80) X10*6/uL Hgb 15.6 (14.0-18.0) g/dl Hct 47.7 (42.0-52.0) % MCV 84.6 (80.0-98.0) fL MCH 27.7 (27.0-33.0) pg MCHC 32.7 (31.0-36.0) g/dl RDW 12.4 (11.0-16.0) % Plt Count 300 (160-400) X10*3/uL MPV 10.1 (9.4-12.4) fL Immature Gran % (Auto) 0.2 (0.0-0.4) % Neut % (Auto) 39.7 L (45-73) % Lymph % (Auto) 43.8 H (20-40) % [place] % (Auto) 9.6 (2-11) % Eos % (Auto) 5.4 H (0-4) % Baso % (Auto) 1.3 (0-2) % Lymph # (Auto) 2.1 (1.2-4.9) X10*3/uL [place] # (Auto) 0.5 (0.1-1.2) X10*3/uL Eos # (Auto) 0.3 (0.0-0.4) X10*3/uL Baso # (Auto) 0.1 (0.0-0.2) X10*3/uL Abs Immat Gran (auto) 0.01 (0.00-0.03) X10*3/uL Absolute Neuts (auto) 1.9 L (2.0-8.3) x10*3/uL Absolute Nucleated RBC 0.000 (0.0-0.012) X10*3/uL Nucleated RBC % (auto) 0.0 (0.0-0.2) /100WBC VBG pH 7.38 (7.32-7.43) VBG pCO2 45 mmHg VBG pO2 45 mmHg VBG HCO3 27 H (22-26) mmol/L VBG O2 Saturation 73.0 % VBG Base Excess 1.4 mmol/L Sodium 137 (135-145) mmol/L Potassium 4.1 (3.3-5.1) mmol/L Chloride 101 (96-108) mmol/L Carbon Dioxide 25 (22-29) mmol/L Anion Gap 15 (12-20) BUN 10 (9-16) mg/dL Creatinine 1.27 (0.5-1.4) mg/dL Estim Creat Clear Calc 128.6 Estimated GFR > 60 POC Glucose 310 H (60-115) mg/dL Random Glucose 328 H (60-115) mg/dL Calcium 10.0 (8.4-10.2) mg/dL Total Bilirubin 0.6 (0.0-1.0) mg/dL Direct Bilirubin 0.2 (0.0-0.5) mg/dL AST 36 (5-37) U/L ALT 39 (0-40) U/L Alkaline Phosphatase 69 (39-117) U/L Troponin I High Sens < 2.7 (<3.5-35.0) ng/L B-Natriuretic Peptide < 10 (<100) pg/mL Total Protein 7.5 (6.5-8.0) g/dL Albumin 4.4 (3.5-5.0) g/dL Beta-Hydroxybutyrate 0.17 (0.02-0.27) mmol/L Urine Opiates Screen (Not Detect) Urine Fentanyl Screen (Not Detect) Ur Barbiturates Screen (Not Detect) Ur Phencyclidine Scrn (Not Detect) Ur Amphetamines Screen (Not Detect) U Benzodiazepines Scrn (Not Detect) Urine Cocaine Screen (Not Detect) U Marijuana (THC) Screen (Not Detect) Ethyl Alcohol < 10 mg/dL 06/17/23 06/17/23 06/17/23 Range/Units 05:34 08:50 11:48 WBC (4.8-10.8) X10*3/uL RBC (4.60-5.80) X10*6/uL Hgb (14.0-18.0) g/dl Hct (42.0-52.0) % MCV (80.0-98.0) fL MCH (27.0-33.0) pg MCHC (31.0-36.0) g/dl RDW (11.0-16.0) % Plt Count (160-400) X10*3/uL MPV (9.4-12.4) fL Immature Gran % (Auto) (0.0-0.4) % Neut % (Auto) (45-73) % Lymph % (Auto) (20-40) % [place] % (Auto) (2-11) % Eos % (Auto) (0-4) % Baso % (Auto) (0-2) % Lymph # (Auto) (1.2-4.9) X10*3/uL [place] # (Auto) (0.1-1.2) X10*3/uL Eos # (Auto) (0.0-0.4) X10*3/uL Baso # (Auto) (0.0-0.2) X10*3/uL Abs Immat Gran (auto) (0.00-0.03) X10*3/uL Absolute Neuts (auto) (2.0-8.3) x10*3/uL Absolute Nucleated RBC (0.0-0.012) X10*3/uL Nucleated RBC % (auto) (0.0-0.2) /100WBC VBG pH (7.32-7.43) VBG pCO2 mmHg VBG pO2 mmHg VBG HCO3 (22-26) mmol/L VBG O2 Saturation % VBG Base Excess mmol/L Sodium (135-145) mmol/L Potassium (3.3-5.1) mmol/L Chloride (96-108) mmol/L Carbon Dioxide (22-29) mmol/L Anion Gap (12-20) BUN (9-16) mg/dL Creatinine (0.5-1.4) mg/dL Estim Creat Clear Calc Estimated GFR POC Glucose 212 H 198 H 174 H (60-115) mg/dL Random Glucose (60-115) mg/dL Calcium (8.4-10.2) mg/dL Total Bilirubin (0.0-1.0) mg/dL Direct Bilirubin (0.0-0.5) mg/dL AST (5-37) U/L ALT (0-40) U/L Alkaline Phosphatase (39-117) U/L Troponin I High Sens (<3.5-35.0) ng/L B-Natriuretic Peptide (<100) pg/mL Total Protein (6.5-8.0) g/dL Albumin (3.5-5.0) g/dL Beta-Hydroxybutyrate (0.02-0.27) mmol/L Urine Opiates Screen (Not Detect) Urine Fentanyl Screen (Not Detect) Ur Barbiturates Screen (Not Detect) Ur Phencyclidine Scrn (Not Detect) Ur Amphetamines Screen (Not Detect) U Benzodiazepines Scrn (Not Detect) Urine Cocaine Screen (Not Detect) U Marijuana (THC) Screen (Not Detect) Ethyl Alcohol mg/dL 06/17/23 Range/Units 11:58 WBC (4.8-10.8) X10*3/uL RBC (4.60-5.80) X10*6/uL Hgb (14.0-18.0) g/dl Hct (42.0-52.0) % MCV (80.0-98.0) fL MCH (27.0-33.0) pg MCHC (31.0-36.0) g/dl RDW (11.0-16.0) % Plt Count (160-400) X10*3/uL MPV (9.4-12.4) fL Immature Gran % (Auto) (0.0-0.4) % Neut % (Auto) (45-73) % Lymph % (Auto) (20-40) % [place] % (Auto) (2-11) % Eos % (Auto) (0-4) % Baso % (Auto) (0-2) % Lymph # (Auto) (1.2-4.9) X10*3/uL [place] # (Auto) (0.1-1.2) X10*3/uL Eos # (Auto) (0.0-0.4) X10*3/uL Baso # (Auto) (0.0-0.2) X10*3/uL Abs Immat Gran (auto) (0.00-0.03) X10*3/uL Absolute Neuts (auto) (2.0-8.3) x10*3/uL Absolute Nucleated RBC (0.0-0.012) X10*3/uL Nucleated RBC % (auto) (0.0-0.2) /100WBC VBG pH (7.32-7.43) VBG pCO2 mmHg VBG pO2 mmHg VBG HCO3 (22-26) mmol/L VBG O2 Saturation % VBG Base Excess mmol/L Sodium (135-145) mmol/L Potassium (3.3-5.1) mmol/L Chloride (96-108) mmol/L Carbon Dioxide (22-29) mmol/L Anion Gap (12-20) BUN (9-16) mg/dL Creatinine (0.5-1.4) mg/dL Estim Creat Clear Calc Estimated GFR POC Glucose (60-115) mg/dL Random Glucose (60-115) mg/dL Calcium (8.4-10.2) mg/dL Total Bilirubin (0.0-1.0) mg/dL Direct Bilirubin (0.0-0.5) mg/dL AST (5-37) U/L ALT (0-40) U/L Alkaline Phosphatase (39-117) U/L Troponin I High Sens (<3.5-35.0) ng/L B-Natriuretic Peptide (<100) pg/mL Total Protein (6.5-8.0) g/dL Albumin (3.5-5.0) g/dL Beta-Hydroxybutyrate (0.02-0.27) mmol/L Urine Opiates Screen Not Detected (Not Detect) Urine Fentanyl Screen Not Detected (Not Detect) Ur Barbiturates Screen Not Detected (Not Detect) Ur Phencyclidine Scrn Not Detected (Not Detect) Ur Amphetamines Screen Not Detected (Not Detect) U Benzodiazepines Scrn Not Detected (Not Detect) Urine Cocaine Screen Not Detected (Not Detect) U Marijuana (THC) Screen Not Detected (Not Detect) Ethyl Alcohol mg/dL Independent Interpretation I performed an independent interpretation of an: EKG (My interpretation of EKG: Normal sinus rhythm, heart rate 100, no ST segment depression or elevation, no T-wave inversion, QTC 428) Critical Care Time Critical Care Time Critical Care Time: Yes Total Critical Care Time: 60 Attestation: I have personally provided critical care time. Time includes review of lab data, radiology results, discussion with consultants, and monitoring for potential decompensation. Intervention performed as documented. Discharge Plan Discharge Clinical Impression: Vision changes Patient Disposition: Still a Patient Instructions: Diabetic Retinopathy (ED) Additional Instructions: Please follow-up with ophthalmology. Since your diabetic, you need to be seen by an eye doctor to make sure you are not developing diabetic retinopathy. Please follow-up with your primary care physician tomorrow. If you have any worsening or new symptoms, please return to the emergency room or call 911 Prescriptions: No Action albuterol sulfate [ProAir HFA] 90 mcg/actuation HFA aerosol inhaler 2 puff inhalation Q4-6H PRN (Reason: bronchospasm) Qty: 8.5 0RF benzonatate 200 mg capsule 200 mg PO TID PRN (Reason: cough) Qty: 30 0RF prednisone 20 mg tablet 40 mg PO DAILY Qty: 10 0RF alum-mag hydroxide-simeth [Maalox Advanced] 200-200-20 mg/5 mL suspension 5 ml PO 5XD PRN (Reason: dyspepsia) Qty: 355 0RF Rx Instructions: administer between meals and at bedtime Referrals: Deshaun Snowden [Physician] - 06/17/23 9:00 am
[2023-06-17 04:25] LABS: Basophils Absolute Auto 0.1 X10*3/uL (0.0-0.2); Basophils Percent Auto 1.3 % (0-2); Eosinophils Absolute Auto 0.3 X10*3/uL (0.0-0.4); Eosinophils Percent Auto 5.4 % (0-4); Hematocrit 47.7 % (42.0-52.0); Hemoglobin 15.6 g/dl (14.0-18.0); Imm Gran Abs Auto 0.01 X10*3/uL (0.00-0.03); Imm Gran Pct Auto 0.2 % (0.0-0.4); Lymphocytes Absolute Auto 2.1 X10*3/uL (1.2-4.9); Lymphocytes Percent Auto 43.8 % (20-40); MANUAL DIFF FLAG NO; Mean Corpuscular HGB Conc 32.7 g/dl (31.0-36.0); Mean Corpuscular Hemoglobin 27.7 pg (27.0-33.0); Mean Corpuscular Volume 84.6 fL (80.0-98.0); Mean Platelet Volume 10.1 fL (9.4-12.4); Monocytes Absolute Auto 0.5 X10*3/uL (0.1-1.2); Monocytes Percent Auto 9.6 % (2-11); Neutrophils Absolute Auto 1.9 x10*3/uL (2.0-8.3); Neutrophils Percent Auto 39.7 % (45-73); Platelet Count 300 X10*3/uL (160-400); Red Blood Count 5.64 X10*6/uL (4.60-5.80); Red Cell Distribution Width 12.4 % (11.0-16.0); White Blood Count 4.8 X10*3/uL (4.8-10.8)
--- NOTE | 2023-06-17 04:25 | PC.NURSE ---
concrete paving supervisor at bedside. pt reporting high glucose reading of over 400 at his home, with chest pain, bilateral foot pain and black spots in eyes. pt reports this has been going on for 5 days. pt reports being compliant with diabetic medications at this time. pt has bilateral expiratory wheezing noted. pt denies SOB. provider at bedside discussing pt care. IV established and labs obtained at this time.
[2023-06-17 04:29] LABS: VBG Base Excess 1.4 mmol/L; VBG HCO3 27 mmol/L (22-26); VBG pCO2 45 mmHg; VBG pH 7.38 (7.32-7.43); VBG pO2 45 mmHg
[2023-06-17 04:41] LABS: Beta-Hydroxybutyrate 0.17 mmol/L (0.02-0.27)
[2023-06-17 04:43] LABS: Alanine Aminotransferase 39 U/L (0-40); Albumin Level 4.4 g/dL (3.5-5.0); Alkaline Phosphatase 69 U/L (39-117); Anion Gap 15 (12-20); Aspartate Amino Transferase 36 U/L (5-37); Bilirubin Direct 0.2 mg/dL (0.0-0.5); Bilirubin Total 0.6 mg/dL (0.0-1.0); Blood Urea Nitrogen 10 mg/dL (9-16); Carbon Dioxide 25 mmol/L (22-29); Chloride 101 mmol/L (96-108); Creatinine Clr Calc Pharmacy 128.6; Estimated Glomerular Filt Rate > 60; Ethanol < 10 mg/dL; Glucose Random 328 mg/dL (60-115); Potassium 4.1 mmol/L (3.3-5.1); Sodium 137 mmol/L (135-145); Total Protein 7.5 g/dL (6.5-8.0)
[2023-06-17 04:44] LABS: B Type Natriuretic Peptide < 10 pg/mL (<100)
[2023-06-17 04:44] LABS: Venous Blood Gas Refer to POC result
[2023-06-17 04:47] LABS: Troponin-I High Sensitivity < 2.7 ng/L (<3.5-35.0)
[2023-06-17] MEDS: 0.9 % Sodium Chloride 1,000 ML 999 ML IVCONT ×2 (05:03→08:13)
[2023-06-17] MEDS: Insulin Regular, Human 100 UNIT/ML 3 ML VIAL 10 UNIT IVPUSH (05:03)
[2023-06-17] MEDS: iohexoL 350 MG/ML 100 ML INFUS..BTL 70 ML IV (05:30)
[2023-06-17 05:38] LABS: Glucose, Whole Blood 212 mg/dL (60-115)
[2023-06-17 05:56] VITALS: BP 121/71; PULSE 100; RESP 18; TEMP 36.8; O2SAT 98
--- NOTE | 2023-06-17 05:57 | MHC.EDTECH ---
Patient placed on the quality assurance monitor chassis, vitals were taken. Patient is sleeping and call gonzalez is within reach.
--- NOTE | 2023-06-17 06:17 | PC.NURSE ---
fluid administration delayed d/t position of IV, IV taped accordingly and fluids running well.
--- NOTE | 2023-06-17 07:50 | PC.NURSE ---
pt up to complete visual acuity testing with assistance of Estela James. acuity documented. pt with no complaints at this time. continues to report same chief complaint of poor vision. plan to finish IVF and recheck POC
[2023-06-17 08:18] VITALS: BP 100/52; PULSE 96; RESP 15; O2SAT 96
[2023-06-17 08:53] LABS: Glucose, Whole Blood 198 mg/dL (60-115)
--- NOTE | 2023-06-17 10:02 | PC.NURSE ---
attempted to communicate with pt using [employer] ASL video. pt reporting that the screen is MD jocy and this RN at bedside to assist. pt continued to hang up on the parking meter collector requesting an in-person parking meter collector. attempting to reach out to in person tomato paste maker at this time.
--- NOTE | 2023-06-17 10:13 | PC.NURSE ---
call placed to [employer] requesting assistance for in person senior backup administrator
--- NOTE | 2023-06-17 10:14 | PC.NURSE ---
currently speaking with mobile sales assistant from [employer] - plan to sent out in person supervisor shop at this time.
--- NOTE | 2023-06-17 10:27 | PC.NURSE ---
Chelly (language interpreter from [employer]) working on finding an in person language interpreter for the pt
--- NOTE | 2023-06-17 10:55 | PC.NURSE ---
spoke with Chelly carranza for [employer] transport pilot to be here at approx 1300 for pt
[2023-06-17 11:20] VITALS: BP 123/76; PULSE 96; RESP 16; O2SAT 97
[2023-06-17 11:54] LABS: Glucose, Whole Blood 174 mg/dL (60-115)
[2023-06-17 12:12] LABS: Amphetamine Screen Urine Not Detected (Not Detect); Barbiturates, Urine Not Detected (Not Detect); Benzodiazepines Screen Urine Not Detected (Not Detect); Cannabinoid Screen Urine Not Detected (Not Detect); Cocaine Screen Urine Not Detected (Not Detect); Fentanyl, urine Not Detected (Not Detect); Opiate Screen Urine Not Detected (Not Detect); Phencyclidine Screen Urine Not Detected (Not Detect)
--- NOTE | 2023-06-17 12:20 | PC.NURSE ---
pt requesting food at this time. POC taken, in range, MD Handley ok pt to eat. pt in bed, resting quietly playing a game on his phone
[2023-06-17 13:23] LABS: Glucose, Whole Blood 185 mg/dL (60-115)
== END 2023-06-17 13:50 | disposition home or self-care (01) ==
PROVIDERS: Emergency Medicine; Emergency Provider Emergency Medicine
DX: H53.8 Other visual disturbances (principal); R06.02 Shortness of breath; E11.65 Type 2 diabetes mellitus with hyperglycemia; Z79.899 Other long term (current) drug therapy
CPT/HCPCS: 36415; 70496; 70498; 80053; 80307; 82010; 82248; 82803; 82947; 83880; 84484; 85025; 93005; 96361; 96374; 99285; Q9967

== ENCOUNTER 2023-07-06 20:48 | Emergency (ER) | payer MEDICARE, SELFPAY ==
[2023-07-06 20:58] VITALS: BP 122/81; PULSE 111; RESP 16; TEMP 36.3; O2SAT 96; BMI 47.2
[2023-07-06 21:05] LABS: Glucose, Whole Blood 388 mg/dL (60-115)
--- NOTE | 2023-07-06 21:41 | ED.GENADULT ---
HPI - General Adult General Chief complaint: General Medical Stated complaint: elevated blood sugar Time Seen by Provider: 07/06/23 21:30 Source: patient Mode of arrival: ambulatory Limitations: language barrier (Sign language) History of Present Illness HPI narrative: Patient diabetic deaf missed his regular insulin today as he does not have. Takes Lantus 100 units in the morning and Humalog insulin according to sliding scale unable to get his insulin as he was busy. Took his Lantus and Humalog in a.m. but did not have any Humalog at the nighttime Also does have pain in the left ankle for last 3 days, with history of DVT in the same leg no pain in the calf area patient denies any complaints no nausea no vomiting no abdominal Related Data Home Medications Medication Instructions Recorded Confirmed atorvastatin 20 mg tablet 20 mg PO BEDTIME 06/17/23 06/17/23 dulaglutide 4.5 mg/0.5 mL 4.5 mg subcut QWEEK 06/17/23 06/17/23 subcutaneous pen injector (Trulicity) insulin glargine 100 unit/mL (3 90 unit subcut QAM 06/17/23 06/17/23 mL) subcutaneous pen (Lantus Solostar U-100 Insulin) insulin lispro 100 unit/mL 10 unit subcut QID 06/17/23 06/17/23 subcutaneous pen Previous Rx's Medication Instructions Recorded albuterol sulfate 90 mcg/actuation 2 puff inhalation Q4-6H PRN 02/19/23 aerosol inhaler (ProAir HFA) bronchospasm #8.5 grams benzonatate 200 mg capsule 200 mg PO TID PRN cough #30 caps 02/19/23 prednisone 20 mg tablet 40 mg (2 x 20 mg) PO DAILY #10 tabs 02/19/23 aluminum-mag hydroxide-simethicone 5 ml PO 5XD PRN dyspepsia #355 mL 03/22/23 200 mg-200 mg-20 mg/5 mL oral susp (Maalox Advanced) atorvastatin 20 mg tablet (Lipitor) 20 mg PO BEDTIME #30 tabs 06/17/23 dulaglutide 4.5 mg/0.5 mL 4.5 mg (0.5 mL) subcut QWEEK #2 mL 06/17/23 subcutaneous pen injector insulin glargine 100 unit/mL 90 unit (0.9 mL) subcut QAM #10 mL 06/17/23 subcutaneous solution insulin lispro 100 unit/mL 1 sliding scale dose subcut 06/17/23 subcutaneous solution USEASDIRECTD #10 mL insulin glargine 100 unit/mL (3 100 unit subcut QAM #15 mL 07/06/23 mL) subcutaneous pen (Lantus Solostar U-100 Insulin) insulin lispro 100 unit/mL 1 sliding scale dose subcut 07/06/23 subcutaneous pen USEASDIRECTD #15 mL Allergies Allergy/AdvReac Type Severity Reaction Status Date / Time No Known Allergies Allergy Verified 06/17/23 03:50 Review of Systems Review of Systems: Yes all other systems are reviewed and are negative [facility] Social History Social History Alcohol intake: never Smoked in Last 30 Days: No Use of substances other than those prescribed or required for medical reasons: No Advance Directives: No Advance Directives Information Provided: No Physical Exam ED Vital Signs: Vital Signs - 24 hr 07/06/23 20:58 07/06/23 22:02 Temperature 97.4 F 98.6 F Pulse Rate 111 H 105 H Respiratory Rate 16 20 Blood Pressure 122/81 114/63 Pulse Oximetry 96 96 Oxygen Delivery Method Room Air Room Air BMI result Body Mass Index 47.2 Appearance: Alert. Oriented X3. No acute distress. Eyes: No pallor or icterus ENT: Pharynx normal. Oral Mucosa moist Neck: Normal inspection. Neck supple. CVS: Normal heart rate and rhythm. Pulses normal. Respiratory: No respiratory distress. Equal air entry bilateral, no wheezing/rales/rhonchi Abdomen: Soft and nontender. Bowel sounds are present, no mass palpable, no CVA tenderness Skin: Skin warm and dry. Normal skin color. Normal skin turgor. no calf tenderness Neuro: Oriented X 3. No motor deficit. No sensory deficit.No cerebellar signs , cranial nerves II-XII intact Medications Administered Discontinued Medications Generic Name Dose Route Start Last Admin Trade Name Freq PRN Reason Stop Dose Admin Insulin Human Lispro 22 unit 07/06/23 21:57 07/06/23 22:27 Insulin Lispro 100 Unit/Ml 3 Ml Vial SUBCUT 07/06/23 21:58 22 unit ONCE ONE Administration Medical Decision Making Medical Decision Making MDM Narrative: Patient hyperglycemic secondary to missing his insulin which was given in the ER and prescription filled advised to get the insulin as outpatient, D-dimer negative for DVT Differential Diagnosis Differential Diagnoses: The differential diagnosis associated with the presentation includes As above Lab Data [facility] Lab Attestation statement: I reviewed the patient's lab results. 07/06/23 22:19 07/06/23 22:19 Labs: Lab Results 07/06/23 07/06/23 07/06/23 Range/Units 21:02 22:19 23:08 WBC 5.6 (4.8-10.8) X10*3/uL RBC 4.72 (4.60-5.80) X10*6/uL Hgb 13.4 L (14.0-18.0) g/dl Hct 40.3 L (42.0-52.0) % MCV 85.4 (80.0-98.0) fL MCH 28.4 (27.0-33.0) pg MCHC 33.3 (31.0-36.0) g/dl RDW 12.5 (11.0-16.0) % Plt Count 240 (160-400) X10*3/uL MPV 10.5 (9.4-12.4) fL Immature Gran % (Auto) 0.4 (0.0-0.4) % Neut % (Auto) 50.0 (45-73) % Lymph % (Auto) 35.8 (20-40) % Mcdonald % (Auto) 7.8 (2-11) % Eos % (Auto) 4.8 H (0-4) % Baso % (Auto) 1.2 (0-2) % Lymph # (Auto) 2.0 (1.2-4.9) X10*3/uL Mcdonald # (Auto) 0.4 (0.1-1.2) X10*3/uL Eos # (Auto) 0.3 (0.0-0.4) X10*3/uL Baso # (Auto) 0.1 (0.0-0.2) X10*3/uL Abs Immat Gran (auto) 0.02 (0.00-0.03) X10*3/uL Absolute Neuts (auto) 2.8 (2.0-8.3) x10*3/uL Absolute Nucleated RBC 0.000 (0.0-0.012) X10*3/uL Nucleated RBC % (auto) 0.0 (0.0-0.2) /100WBC D-Dimer High Sensitivty < 150 NG/ML Sodium 141 (135-145) mmol/L Potassium 4.0 (3.3-5.1) mmol/L Chloride 104 (96-108) mmol/L Carbon Dioxide 22 (22-29) mmol/L Anion Gap 19 (12-20) BUN 8 L (9-16) mg/dL Creatinine 1.03 (0.5-1.4) mg/dL Estim Creat Clear Calc 161.0 Estimated GFR > 60 POC Glucose 388 H* 247 H (60-115) mg/dL Random Glucose 349 H (60-115) mg/dL Calcium 9.3 D (8.4-10.2) mg/dL Total Bilirubin 0.8 (0.0-1.0) mg/dL AST 58 H (5-37) U/L ALT 54 H (0-40) U/L Alkaline Phosphatase 56 (39-117) U/L Total Protein 6.6 (6.5-8.0) g/dL Albumin 4.0 (3.5-5.0) g/dL Discharge Plan Discharge Clinical Impression: Diabetes mellitus with hyperglycemia Patient Disposition: Home, Self-Care Instructions: Diabetic Hyperglycemia (ED) Additional Instructions: Take your insulin on time Check your blood sugar as advised Prescriptions: New insulin glargine [Lantus Solostar U-100 Insulin] 100 unit/mL (3 mL) insulin pen 100 unit subcut QAM Qty: 15 6RF insulin lispro 100 unit/mL insulin pen 1 sliding scale dose subcut USEASDIRECTD Qty: 15 6RF No Action albuterol sulfate [ProAir HFA] 90 mcg/actuation HFA aerosol inhaler 2 puff inhalation Q4-6H PRN (Reason: bronchospasm) Qty: 8.5 0RF benzonatate 200 mg capsule 200 mg PO TID PRN (Reason: cough) Qty: 30 0RF prednisone 20 mg tablet 40 mg PO DAILY Qty: 10 0RF alum-mag hydroxide-simeth [Maalox Advanced] 200-200-20 mg/5 mL suspension 5 ml PO 5XD PRN (Reason: dyspepsia) Qty: 355 0RF Rx Instructions: administer between meals and at bedtime insulin lispro 100 unit/mL insulin pen 10 unit subcut QID insulin glargine [Lantus Solostar U-100 Insulin] 100 unit/mL (3 mL) insulin pen 90 unit subcut QAM Trulicity 4.5 mg/0.5 mL pen injector 4.5 mg subcut QWEEK atorvastatin 20 mg tablet 20 mg PO BEDTIME atorvastatin [Lipitor] 20 mg tablet 20 mg PO BEDTIME Qty: 30 0RF insulin lispro 100 unit/mL solution 1 sliding scale dose subcut USEASDIRECTD Qty: 10 0RF insulin glargine 100 unit/mL solution 90 unit subcut QAM Qty: 10 0RF dulaglutide 4.5 mg/0.5 mL pen injector 4.5 mg subcut QWEEK Qty: 2 0RF
[2023-07-06 22:02] VITALS: BP 114/63; PULSE 105; RESP 20; TEMP 37; O2SAT 96
[2023-07-06] MEDS: Insulin Lispro 100 UNIT/ML 3 ML VIAL 22 UNIT SUBCUT (22:27)
[2023-07-06 22:28] LABS: MANUAL DIFF FLAG NO
[2023-07-06 22:29] LABS: Basophils Absolute Auto 0.1 X10*3/uL (0.0-0.2); Basophils Percent Auto 1.2 % (0-2); Eosinophils Absolute Auto 0.3 X10*3/uL (0.0-0.4); Eosinophils Percent Auto 4.8 % (0-4); Hematocrit 40.3 % (42.0-52.0); Hemoglobin 13.4 g/dl (14.0-18.0); Imm Gran Abs Auto 0.02 X10*3/uL (0.00-0.03); Imm Gran Pct Auto 0.4 % (0.0-0.4); Lymphocytes Percent Auto 35.8 % (20-40); Mean Corpuscular HGB Conc 33.3 g/dl (31.0-36.0); Mean Corpuscular Hemoglobin 28.4 pg (27.0-33.0); Mean Corpuscular Volume 85.4 fL (80.0-98.0); Mean Platelet Volume 10.5 fL (9.4-12.4); Monocytes Absolute Auto 0.4 X10*3/uL (0.1-1.2); Monocytes Percent Auto 7.8 % (2-11); Neutrophils Absolute Auto 2.8 x10*3/uL (2.0-8.3); Platelet Count 240 X10*3/uL (160-400); Red Blood Count 4.72 X10*6/uL (4.60-5.80); Red Cell Distribution Width 12.5 % (11.0-16.0); White Blood Count 5.6 X10*3/uL (4.8-10.8)
[2023-07-06 22:42] LABS: Alanine Aminotransferase 54 U/L (0-40); Alkaline Phosphatase 56 U/L (39-117); Anion Gap 19 (12-20); Aspartate Amino Transferase 58 U/L (5-37); Bilirubin Total 0.8 mg/dL (0.0-1.0); Blood Urea Nitrogen 8 mg/dL (9-16); Calcium 9.3 mg/dL (8.4-10.2); Carbon Dioxide 22 mmol/L (22-29); Chloride 104 mmol/L (96-108); Estimated Glomerular Filt Rate > 60; Glucose Random 349 mg/dL (60-115); Sodium 141 mmol/L (135-145); Total Protein 6.6 g/dL (6.5-8.0)
[2023-07-06 22:51] LABS: D Dimer High Sensitivity < 150 NG/ML
[2023-07-06 23:12] LABS: Glucose, Whole Blood 247 mg/dL (60-115)
[2023-07-06 23:20] VITALS: BP 112/63; PULSE 100; RESP 20; TEMP 36.9; O2SAT 96
== END 2023-07-06 23:25 | disposition home or self-care (01) ==
PROVIDERS: Emergency Provider Internal Medicine
DX: E11.65 Type 2 diabetes mellitus with hyperglycemia (principal)
CPT/HCPCS: 36415; 80053; 82947; 85025; 85379; 99283; 99284

== ENCOUNTER → 2023-07-10 13:55 | Outpatient (BNVA) | payer MEDICARE, MEDICAID, SELFPAY | PROVIDERS: Visit Provider Surgery ==

== ENCOUNTER 2023-09-18 13:15 | Outpatient (AMB) | payer MEDICARE, MEDICAID, SELFPAY ==
--- NOTE | 2023-09-18 13:46 | MHC.OFFVISWM ---
Intake VS Expanded 09/18/23 13:58 BP 148/92 H Blood Pressure Location Rt brachial Blood Pressure Position Sitting Pulse 112 H Pulse Source Pulse Oximeter Temp 96.3 F L Temperature Source Temporal Artery Scan Pulse Oximetry 96 Oxygen Delivery Method Room Air Height 5 ft 11 in Weight 305 lb BMI 42.5 Body Fat % 38.3 Body Fat Mass 116.8 Fat Free Mass 188.0 Visceral Fat Rating 20.0 Body Water % 45.1 Body Water Mass 137.6 Muscle Mass/Score 178.8 Basal Metabolic Rate/Score 2,677 Intake Visit Reasons: (OV) PROSTHODONTIST SWL BMI 45.6 Allergies No Known Allergies Allergy (Verified 09/18/23 13:55) Medication List - Last Reconciled 09/18/23 by Mariposa Palacios PA-C albuterol sulfate 90 mcg/actuation (ProAir HFA) 2 puffs inhalation Q4-6H PRN atorvastatin 20 mg PO BEDTIME benzonatate 200 mg PO TID PRN dulaglutide (Trulicity) 4.5 mg subcut QWEEK dulaglutide 4.5 mg (0.5 mL) subcut QWEEK insulin glargine (Lantus Solostar U-100 Insulin) 90 units subcut QAM insulin glargine (Lantus Solostar U-100 Insulin) 100 units subcut QAM insulin lispro 1 sliding scale dose subcut USEASDIRECTD insulin lispro 1 sliding scale dose subcut USEASDIRECTD metformin 1,000 mg PO BID HPI HPI Comments History of Present Illness Details This is a 27 year old man who is here to start SWL program with SWL classes. His goal is to weigh about 180 lbs. He reports first being concerned about her weight over 3 years ago He has tried multiple methods of weight loss including diet and exercise without permanent results. He lis homeless lives with friends. He is self employed and SSDI. Was hospitialized x 1 week voluntarily for depression. Has CGM, refrigerates insulin at hismothers house. He wakes at: 8am bed at 12MN He has no ability to cook food, has refrigeration and has food stamps. Breakfast: skips breakfast every day. water or crystal, diet pepsi. tea with sugar Lunch: 2-3 pm - wrap sandwich chicken breast, with chips and guacamole. water or soda Dinner: 7-8 pm - pigs feet, tofu, salads restaurant or grocery stores. After dinner: nothing Other snacks: candies - not every day. Liquids: soda and juice daily Alcohol intake: none, tobacco: none, marijuana: none, Exercise: no access to gym equipment or gym. MIKEY: 6 ESS:19 GERD: 21 QOL:122 PFSH Medical History (Updated 09/18/23 @ 14:59 by Mariposa Palacios PA-C) Cochlear implant in place Surgical History (Updated 09/18/23 @ 13:55 by Terri Srinivasan CMA) History of surgery of head Social History (Updated 09/18/23 @ 13:55 by Terri Srinivasan CMA) Alcohol intake: never Patient Tobacco Use Status: Former Tobacco user Quit Date: 3yrs ago Physical Exam Vital Signs: Last Vital Signs Temp 96.3 F L 09/18/23 13:58 Pulse 112 H 09/18/23 13:58 BP 148/92 H 09/18/23 13:58 Pulse Ox 96 09/18/23 13:58 Oxygen Delivery Method Room Air 09/18/23 13:58 BMI result Body Mass Index 42.5 Assessment & Plan Assessment & Plan (1) Morbid obesity: Code(s): E66.01 - Morbid (severe) obesity due to excess calories Plan: This is a 27 yo deaf man with IDDM who will start SWL program to prepare for bariatric surgery. Blood work, h pylori , CXR, ECG, Abd ULS and UGI have been ordered. He is being scheduled for RD and BH initial consultations. He will need to watch SWL classe in office with sign automotive worker foreman. Aydee he is homeless, IDDM and deaf - I told him not to start his meal plan until he returns from a trip to [place] on September 27. Will have follow up with me in October 01 - for help with glucose control. He will text me his blood sugars if they go below 100 and I will adjust his sliding scale first. All of his doctors are in [facility]. 1. Adequate sleep of 7-8 hours per night discussed 2. Healthy meal plan - stop skipping meals and stop all sweetened drinks. He will purchase shakes and bars with food stamps. All meals/MR's need to take 20 minutes to complete 9 am - RTD protein shake 12 pm - salad with shrimp, fish or chicken - 2 tbl oil and vinegar dressing only 4 pm- bar or yogurt 7 pm- RTD protein shake with water or UAMdinner of 12 forks lean protein, 12 forks vegetable, 1 serving fruit Exercise - 45 minutes walking per day until has gym membership Pt will purchase body composition analyzer (recommended list given to patient) and weight herself weekly. Next appt with me in 3 weeks in office, Beth in 2 weeks.. Text me with any questions and weekly weights and blood sugars.. All appts will need sign painter apprentice. Mercedez Sanchez interpreted today. Patient is morbidly obese and is not considered stable at this time.?I spent a total of 60 minutes reviewing/updating records, examining the patient and counseling the patient on weight management as detailed above. (2) Diabetes mellitus: Code(s): E11.9 - Type 2 diabetes mellitus without complications Plan: see above (3) Hearing impaired: Code(s): H91.90 - Unspecified hearing loss, unspecified ear (4) Hyperlipidemia: Code(s): E78.5 - Hyperlipidemia, unspecified (5) Daytime somnolence: Code(s): R40.0 - Somnolence Plan: SS ordered (6) Snoring: Code(s): R06.83 - Snoring Plan see above Orders: Orders H Pylori Breath Test Today R06.83 - Snoring, R40.0 - Somnolence Complete Blood Count Auto Diff Today R06.83 - Snoring, R40.0 - Somnolence Lipid Panel Today R06.83 - Snoring, R40.0 - Somnolence Comprehensive Met. Panel Today R06.83 - Snoring, R40.0 - Somnolence Vitamin B1 Today R06.83 - Snoring, R40.0 - Somnolence US abdomen comp w elastography Today R06.83 - Snoring, R40.0 - Somnolence FL upper GI w air Today R06.83 - Snoring, R40.0 - Somnolence Insulin Today R06.83 - Snoring, R40.0 - Somnolence Hemoglobin A1c Today R06.83 - Snoring, R40.0 - Somnolence IRON PROFILE Today R06.83 - Snoring, R40.0 - Somnolence Vitamin B12 and Folate Today R06.83 - Snoring, R40.0 - Somnolence Zinc Today R06.83 - Snoring, R40.0 - Somnolence C Reactive Protein Today R06.83 - Snoring, R40.0 - Somnolence Vitamin A Today R06.83 - Snoring, R40.0 - Somnolence TSH reflex Free T4 Today R06.83 - Snoring, R40.0 - Somnolence Ferritin Today R06.83 - Snoring, R40.0 - Somnolence Vitamin D 25-OH Total Today R06.83 - Snoring, R40.0 - Somnolence XR chest 2V Today R06.83 - Snoring, R40.0 - Somnolence ECG 12 lead EKG Today R06.83 - Snoring, R40.0 - Somnolence RT home sleep study Today R06.83 - Snoring, R40.0 - Somnolence Referrals Behavioral Health Referral R06.83 - Snoring, R40.0 - Somnolence Nutrition/Dietitian Referral R06.83 - Snoring, R40.0 - Somnolence Coding Level of Care Code New Pt Level 5 (03086) Diagnoses Morbid obesity E66.01 Diabetes mellitus E11.9 Hearing impaired H91.90 Hyperlipidemia E78.5 Daytime somnolence R40.0 Snoring R06.83
[2023-09-18 13:58] VITALS: BP 148/92; PULSE 112; TEMP 35.7; O2SAT 96; BMI 42.5
== END 2023-09-18 15:26 | disposition home or self-care (01) ==
PROVIDERS: Visit Provider Physician Assistant
DX: E66.01 Morbid (severe) obesity due to excess calories (principal); Z68.41 Body mass index [BMI] 40.0-44.9, adult; E78.5 Hyperlipidemia, unspecified; R40.0 Somnolence; R06.83 Snoring
CPT/HCPCS: 99205

== ENCOUNTER → 2023-09-18 13:15 | Outpatient (BNVA) | payer MEDICARE, SELFPAY | PROVIDERS: Visit Provider Physician Assistant | DX: E66.01 Morbid (severe) obesity due to excess calories (principal); E78.5 Hyperlipidemia, unspecified; E11.9 Type 2 diabetes mellitus without complications; H91.90 Unspecified hearing loss, unspecified ear; R40.0 Somnolence; R06.83 Snoring; Z68.41 Body mass index [BMI] 40.0-44.9, adult; Z79.4 Long term (current) use of insulin; Z79.84 Long term (current) use of oral hypoglycemic drugs | CPT/HCPCS: 99202 ==

== ENCOUNTER 2023-10-02 12:26 | Outpatient (REF) | payer MEDICARE, SELFPAY ==
[2023-10-04 11:25] LABS: H Pylori Breath Test Positive (Negative)
== END 2023-10-02 12:27 | disposition home or self-care (01) ==
LOC: HO.LNP 12:26
PROVIDERS: Visit Provider Physician Assistant
DX: E66.01 Morbid (severe) obesity due to excess calories (principal); R40.0 Somnolence; R06.83 Snoring
CPT/HCPCS: 83013; 99211; 99212

== ENCOUNTER 2023-10-02 12:27 | Outpatient (AMB) | payer MEDICARE, SELFPAY ==
--- NOTE | 2023-10-02 12:35 | A.OFFVIS_ITS ---
Intake VS Expanded 10/02/23 12:44 BP 120/84 Blood Pressure Location Rt brachial Blood Pressure Position Sitting Pulse 89 Pulse Source Pulse Oximeter Temp 97.2 F Temperature Source Tympanic Pulse Oximetry 94 Oxygen Delivery Method Room Air Height 5 ft 11 in Weight 315 lb 6.4 oz BMI 44.0 Body Fat % 37.7 Body Fat Mass 151.4 Fat Free Mass 196.4 Visceral Fat Rating 21.0 Body Water % 48.0 Body Water Mass 151.4 Muscle Mass/Score 187.0 Basal Metabolic Rate/Score 2,802 Intake Visit Reasons: (OV) F/U SWL *SEE COMMENTS* Allergies No Known Allergies Allergy (Verified 09/18/23 13:55) HPI HPI Comments History of Present Illness Details This 28 you deaf, unhoused man returns today after his trip [facility] support before starting SWL meal plan. He has gained 10 lbs over last 2 weeks. He is starting a job at [employer] next week - does not know his hours at work yet, but will be 40 hours. He will be living in [place] and he has a car.. job press feeder is Chelsey. This is the patients second appt for SWL. Starting weight was 305 lbs. Meal plan: has not started yet. BS 113, 400 yesterday. Patient was able to report the meal plan back to me. 9am - ENsure MAx shake 12 pm- 12 forks vegetable and 12 forks p rotien 4pm - shake 7pm - protein bar Can have another half bar if hungry or if BS under 100. Exercise plan: will go to gym 4 d/ week. Boot camp 4d/week Pre op work up completed as follows: SWL classes - - will schedule for class in office today. appts - 10/13 RD appts - 10/07 H pylori - Labs, CXR and ECG - will get this done this week. ULS and UGI - 10/13 and 11/19 He knows if BS gets below 100 will take 2 bites of bar and recheck. [facility] Medical History (Updated 09/18/23 @ 14:59 by Mariposa Palacios PA-C) Cochlear implant in place Surgical History (Updated 09/18/23 @ 13:55 by Terri Srinivasan CMA) History of surgery of head Social History (Updated 09/18/23 @ 13:55 by DAYAMI Groves Alcohol intake: never Patient Tobacco Use Status: Former Tobacco user Quit Date: 3yrs ago Assessment & Plan Assessment & Plan (1) Morbid obesity: Code(s): E66.01 - Morbid (severe) obesity due to excess calories Plan: Pt will start meal plan and exercise plans today. He will text me with any questions. Appt with Beth next week, Labs CXR, ECG this week. Will start SWL classes in office with environmental protection specialist today. Beth recommended that he use Glucerna 30 protein shake - picture given to patient - should help to stabilize blood sugars. Next appt with me in 2 weeks. Patient is morbidly obese and is not considered stable at this time. I spent 30 minutes in total with patient and firestop/containment worker reviewing/updating records, examining the patient and counseling the patient on weight management as detailed above. Coding Level of Care Code Est Pt Level 4 (36833) Diagnoses Morbid obesity E66.01
[2023-10-02 12:44] VITALS: BP 120/84; PULSE 89; TEMP 36.2; O2SAT 94; BMI 44.0
== END 2023-10-02 13:42 | disposition home or self-care (01) ==
PROVIDERS: Visit Provider Physician Assistant
DX: E66.01 Morbid (severe) obesity due to excess calories (principal); Z68.41 Body mass index [BMI] 40.0-44.9, adult
CPT/HCPCS: 99214

== ENCOUNTER 2023-10-08 10:38 | Outpatient (REF) | payer MEDICARE, SELFPAY ==
[2023-10-08 10:58] LABS: MANUAL DIFF FLAG NO
[2023-10-08 11:43] LABS: Basophils Absolute Auto 0.1 X10*3/uL (0.0-0.2); Basophils Percent Auto 1.4 % (0-2); Eosinophils Absolute Auto 0.2 X10*3/uL (0.0-0.4); Eosinophils Percent Auto 3.6 % (0-4); Hematocrit 44.9 % (42.0-52.0); Hemoglobin 14.7 g/dl (14.0-18.0); Imm Gran Abs Auto 0.01 X10*3/uL (0.00-0.03); Imm Gran Pct Auto 0.2 % (0.0-0.4); Lymphocytes Absolute Auto 1.7 X10*3/uL (1.2-4.9); Lymphocytes Percent Auto 33.8 % (20-40); Mean Corpuscular HGB Conc 32.7 g/dl (31.0-36.0); Mean Corpuscular Volume 85.5 fL (80.0-98.0); Mean Platelet Volume 10.2 fL (9.4-12.4); Monocytes Absolute Auto 0.5 X10*3/uL (0.1-1.2); Monocytes Percent Auto 9.2 % (2-11); Neutrophils Absolute Auto 2.6 x10*3/uL (2.0-8.3); Neutrophils Percent Auto 51.8 % (45-73); Platelet Count 307 X10*3/uL (160-400); Red Blood Count 5.25 X10*6/uL (4.60-5.80); Red Cell Distribution Width 12.7 % (11.0-16.0)
[2023-10-08 11:52] LABS: Estimated Average Glucose 143 mg/dL; Hemoglobin A1c % 6.6 % (<6.0)
[2023-10-08 12:18] LABS: Alanine Aminotransferase 44 U/L (0-40); Albumin Level 4.4 g/dL (3.5-5.0); Alkaline Phosphatase 73 U/L (39-117); Anion Gap 11 (12-20); Aspartate Amino Transferase 45 U/L (5-37); Bilirubin Total 1.2 mg/dL (0.0-1.0); Blood Urea Nitrogen 14 mg/dL (9-16); C Reactive Protein 1.42 mg/dL (< or = 0.50); Calcium 9.8 mg/dL (8.4-10.2); Carbon Dioxide 29 mmol/L (22-29); Chloride 105 mmol/L (96-108); Cholesterol 125 mg/dL (<200); Estimated Glomerular Filt Rate > 60; Glucose Random 68 mg/dL (60-115); HDL Cholesterol 42 mg/dL (>40); Iron 91 mcg/dL (45-160); LDL Cholesterol Calculated 71 mg/dL (<100); Percent Iron Saturation 31 % (15-50); Potassium 3.5 mmol/L (3.3-5.1); Sodium 141 mmol/L (135-145); Total Iron Binding Capacity 298 mcg/dL (228-428); Total Protein 7.5 g/dL (6.5-8.0); Triglycerides 61 mg/dL (<150); Unsaturated Iron Binding 207 ug/dL
[2023-10-08 12:24] LABS: Ferritin 138 ng/mL (20-250); Insulin 81 uU/mL (2-29); TSH reflex Free T4 1.34 uIU/mL (0.32-4.0); Vitamin D 25-OH Total 19.3 ng/mL (>30)
[2023-10-08 12:35] LABS: Folate 10.2 ng/mL (> or = 4.0); Vitamin B12 539 pg/mL (200-900)
[2023-10-11 14:04] LABS: Zinc 67 mcg/dL (60-130)
[2023-10-12 10:53] LABS: Vitamin A 32 mcg/dL (38-98)
[2023-10-13 11:38] LABS: Vitamin B1 9 nmol/L (8-30)
== END 2023-10-08 10:39 | disposition home or self-care (01) ==
LOC: HO.LAB 10:38
PROVIDERS: Visit Provider Physician Assistant
DX: R40.0 Somnolence (principal); R06.83 Snoring; E66.01 Morbid (severe) obesity due to excess calories; E11.9 Type 2 diabetes mellitus without complications; Z71.3 Dietary counseling and surveillance
CPT/HCPCS: 36415; 80053; 80061; 82306; 82607; 82728; 82746; 83036; 83525; 83540; 84425; 84443; 84590; 84630; 85025; 86140; 97802

== ENCOUNTER 2023-10-08 12:36 | Outpatient (AMB) | payer MEDICARE, SELFPAY ==
--- NOTE | 2023-10-08 13:21 | MHC.AMNUTRGE ---
Intake Intake Visit Reasons: (OV) Initial Nutrition [facility] Generation Technologist Required: Yes Allergies No Known Allergies Allergy (Verified 09/18/23 13:55) HPI Nutrition Presentation Details Pt reports difficulty understanding other central office maintainer Chelsey. Pt is requesting Deshaun, who was used for todays interaction. Reason for consult elevated BMI Unstable SDH Reports food insecurity, housing and use of SNAP Diet Assmnt Details He is homeless lives in his car. He started a new job, operates machinery. Has CGM, refrigerates insulin at his mothers house. He drives back and forth to [place] frequently. Currently using Ensure Max but dislikes. gets SNAP, uses to buy his shakes. Likes Glucerna protein smart better (30g protein and same macros as Max). I recommended this for him as it may help balance blood glucose better. Having Protein bars and 1-2 salads per day. Either gets them at salad bars, or places like [employer] in [place] or [employer]. He always has fish, chicken, or tofu on his salads. seems to understand sources of lean protein. A1c 8.9% in [place] 2022 down to 6.6% and pt is thrilled. He reports blood glucose not usually less than 150. Notes a value of 400 but drank sugar sweetened beverage that day. Educated pt on this today. He watched the first nutrition class in office with central office maintainer. States this went well and is OK to continue watching the classes. WIll have him skip to class 4, then to 6 and assess understanding after. He has a lot of questions about surgery and understanding how this works. He also states some concern immediately post op and recovery as he lives in his car. Nurse Tung was present to review all required tests and checklist items with patient. Dietary counseling reduction Diagnosis Nutrition problem #1 overweight/obesity As related to (etiology) #1 excess energy intake and physical inactivity As evidenced by (sign/symptom) #1 high BMI Monitoring/Goals Nutrition problem monitoring total energy intake, level of knowledge/skill, total PRO intake and weight Outcome progress progressing Learning/Education Readiness to learn good Stages of change action Educational materials provided Yes Most Recent Diabetes Results: Cholesterol 125 mg/dL (<200) 10/08/23 HDL Cholesterol 42 mg/dL (>40) 10/08/23 Triglycerides 61 mg/dL (<150) 10/08/23 Creatinine 1.03 mg/dL (0.5-1.4) 10/08/23 Blood Urea Nitrogen 14 mg/dL (9-16) 10/08/23 Sodium 141 mmol/L (135-145) 10/08/23 Potassium 3.5 mmol/L (3.3-5.1) 10/08/23 Chloride 105 mmol/L (96-108) 10/08/23 Carbon Dioxide 29 mmol/L (22-29) 10/08/23 Calcium 9.8 mg/dL (8.4-10.2) 10/08/23 AST 45 U/L (5-37) H 10/08/23 ALT 44 U/L (0-40) H 10/08/23 Total Protein 7.5 g/dL (6.5-8.0) 10/08/23 Albumin 4.4 g/dL (3.5-5.0) 10/08/23 [facility] Medical History (Updated 09/18/23 @ 14:59 by Mariposa Palacios PA-C) Cochlear implant in place Surgical History History of surgery of head Social History Alcohol intake: never Patient Tobacco Use Status: Former Tobacco user Quit Date: 3yrs ago Assessment & Plan Assessment & Plan (1) Morbid obesity: Code(s): E66.01 - Morbid (severe) obesity due to excess calories (2) Diabetes mellitus: Code(s): E11.9 - Type 2 diabetes mellitus without complications Plan Provided a lot of education about balancing plate after bariatric surgery, importance of protein, limiting sugar sweetened beverages, and explained the surgery to him which he seems to previously not have known. will need to book central office maintainer for classes as well. Will see pt again 10/13 at 9:30am- 10:30am OV with central office maintainer Deshaun. goal to help prepare patient for bariatric surgery and provide the education should he decide to continue down this path Coding Level of Care Code Nutr Indiv Intake (10862) Diagnoses Morbid obesity E66.01 Diabetes mellitus E11.9 Time Spent (min) 50
== END 2023-10-08 14:22 | disposition home or self-care (01) ==
PROVIDERS: Visit Provider Dietitian, Registered
DX: E66.01 Morbid (severe) obesity due to excess calories (principal); E11.9 Type 2 diabetes mellitus without complications

== ENCOUNTER 2023-10-09 00:07 | Emergency (ER) | payer MEDICARE, SELFPAY ==
[2023-10-09 00:32] VITALS: BP 123/77; PULSE 88; RESP 18; TEMP 36.6; O2SAT 96; BMI 43.7
[2023-10-09 00:51] LABS: Glucose, Whole Blood 163 mg/dL (60-115)
[2023-10-09 00:52] LABS: MANUAL DIFF FLAG NO
[2023-10-09 00:53] LABS: Basophils Absolute Auto 0.1 X10*3/uL (0.0-0.2); Basophils Percent Auto 1.1 % (0-2); Eosinophils Absolute Auto 0.2 X10*3/uL (0.0-0.4); Eosinophils Percent Auto 3.9 % (0-4); Hemoglobin 14.3 g/dl (14.0-18.0); Imm Gran Abs Auto 0.01 X10*3/uL (0.00-0.03); Imm Gran Pct Auto 0.2 % (0.0-0.4); Lymphocytes Absolute Auto 2.1 X10*3/uL (1.2-4.9); Lymphocytes Percent Auto 34.8 % (20-40); Mean Corpuscular HGB Conc 33.3 g/dl (31.0-36.0); Mean Corpuscular Hemoglobin 28.4 pg (27.0-33.0); Mean Corpuscular Volume 85.5 fL (80.0-98.0); Monocytes Absolute Auto 0.5 X10*3/uL (0.1-1.2); Monocytes Percent Auto 7.6 % (2-11); Neutrophils Absolute Auto 3.2 x10*3/uL (2.0-8.3); Neutrophils Percent Auto 52.4 % (45-73); Platelet Count 303 X10*3/uL (160-400); Red Blood Count 5.03 X10*6/uL (4.60-5.80); Red Cell Distribution Width 12.7 % (11.0-16.0); White Blood Count 6.1 X10*3/uL (4.8-10.8)
[2023-10-09 01:07] LABS: Alanine Aminotransferase 38 U/L (0-40); Albumin Level 4.4 g/dL (3.5-5.0); Alkaline Phosphatase 75 U/L (39-117); Anion Gap 11 (12-20); Aspartate Amino Transferase 42 U/L (5-37); Beta-Hydroxybutyrate 0.15 mmol/L (0.02-0.27); Bilirubin Total 0.9 mg/dL (0.0-1.0); Blood Urea Nitrogen 18 mg/dL (9-16); Calcium 9.5 mg/dL (8.4-10.2); Carbon Dioxide 30 mmol/L (22-29); Chloride 104 mmol/L (96-108); Creatinine Clr Calc Pharmacy 135.5; Estimated Glomerular Filt Rate > 60; Glucose Random 157 mg/dL (60-115); Potassium 3.3 mmol/L (3.3-5.1); Sodium 142 mmol/L (135-145); Total Protein 7.3 g/dL (6.5-8.0)
--- NOTE | 2023-10-09 02:44 | ED_ITS ---
HPI - General Adult General Chief complaint: General Medical Stated complaint: high blood sugar Time Seen by Provider: 10/09/23 02:39 Source: patient Mode of arrival: ambulatory Limitations: no limitations History of Present Illness HPI narrative: 28 yo male hearing impaired, diabetes, obesity here with c/o foot pain from driving as well as running out of his short and long acting insulin x 3 days has other supplies. sugar was 200 to 300 [address] and became nervous complaint: hyperglycemia Onset (ago): day(s) (1) Radiation: non-radiation Severity: mild Relieving factors: none Exacerbating factors: eating Associated symptoms: other (foot pain) Treatments prior to arrival: none Related Data Home Medications Medication Instructions Recorded Confirmed atorvastatin 20 mg tablet 20 mg PO BEDTIME 06/17/23 09/18/23 dulaglutide 4.5 mg/0.5 mL 4.5 mg subcut QWEEK 06/17/23 09/18/23 subcutaneous pen injector (Trulicity) insulin glargine 100 unit/mL (3 90 unit subcut QAM 06/17/23 09/18/23 mL) subcutaneous pen (Lantus Solostar U-100 Insulin) metformin 1,000 mg tablet 1,000 mg PO BID 09/18/23 09/18/23 Previous Rx's Medication Instructions Recorded albuterol sulfate 90 mcg/actuation 2 puff inhalation Q4-6H PRN 02/19/23 aerosol inhaler (ProAir HFA) bronchospasm #8.5 grams benzonatate 200 mg capsule 200 mg PO TID PRN cough #30 caps 02/19/23 dulaglutide 4.5 mg/0.5 mL 4.5 mg (0.5 mL) subcut QWEEK #2 mL 06/17/23 subcutaneous pen injector insulin lispro 100 unit/mL 1 sliding scale dose subcut 06/17/23 subcutaneous solution USEASDIRECTD #10 mL insulin glargine 100 unit/mL (3 100 unit subcut QAM #15 mL 07/06/23 mL) subcutaneous pen (Lantus Solostar U-100 Insulin) insulin lispro 100 unit/mL 1 sliding scale dose subcut 07/06/23 subcutaneous pen USEASDIRECTD #15 mL amoxicillin 500 mg tablet 500 mg PO Q12H #28 tabs 10/07/23 clarithromycin 500 mg tablet 500 mg PO Q12H #28 tabs 10/07/23 pantoprazole 20 mg tablet,delayed 20 mg PO Q12H #28 tabs 10/07/23 release insulin glargine 100 unit/mL (3 70 unit (0.7 mL) subcut QPM #15 mL 10/09/23 mL) subcutaneous pen (Lantus Solostar U-100 Insulin) insulin lispro 100 unit/mL 1 sliding scale dose subcut 10/09/23 subcutaneous pen USEASDIRECTD #15 mL Allergies Allergy/AdvReac Type Severity Reaction Status Date / Time No Known Allergies Allergy Verified 09/18/23 13:55 Review of Systems 2 Review of Systems: Constitutional : No Fever, No Chills, No Fatigue ENT/Mouth : No sore throat, No Rhinorrhea Eyes: No Eye Pain, No Swelling, No Redness Cardiovascular : No Chest Pain, No SOB, No Dyspnea on Exertion Respiratory : No Cough, No Sputum Gastrointestinal : No Nausea, No Vomiting, No Diarrhea, No abdominal Pain Genitourinary : No Dysuria, No Urinary Frequency, No Hematuria, Musculoskeletal : pos joint pain, No Myalgias, No Joint Swelling Skin : No Skin Lesions, No rash Neuro : No Weakness, No Numbness, No Dizziness, no Headache Psych : No Anxiety/Panic, No Depression Heme/Lymph: No Bruising, No Bleeding,No Lymphadenopathy Endocrine : No Polyuria, No Polydipsia All other systems reviewed and are negative [facility] Past Medical History Attestation statement: The following information was validated with the patient. Source: old records reviewed Medical History Cochlear implant in place Surgical History History of surgery of head Social History Social History Alcohol intake: never Patient Tobacco Use Status: Former Tobacco user Quit Date: 3yrs ago Advance Directives: No Physical Exam ED Vital Signs: Vital Signs - 24 hr 10/09/23 00:32 10/09/23 02:56 Temperature 97.9 F 97.4 F Pulse Rate 88 82 Respiratory Rate 18 16 Blood Pressure 123/77 114/56 L Pulse Oximetry 96 98 Oxygen Delivery Method Room Air Room Air BMI result Body Mass Index 43.7 Appearance: Alert. Oriented X3. No acute distress. Eyes: Pupils equal, round and reactive to light. ENT: Pharynx normal. Neck: Normal inspection. Neck supple. CVS: Normal heart rate and rhythm. Pulses normal. Respiratory: No respiratory distress. Breath sounds normal. Abdomen: Soft and non-tender. Skin: Skin warm and dry. Normal skin color. Normal skin turgor. Extremities: No lower extremity edema. No calf ttp feet are calloused but no signs of infection NV intact Neuro: Oriented X 3. No motor deficit. No sensory deficit. Medical Decision Making Medical Decision Making [facility] Narrative: 28 yo male with PMH of DM, obesity here with c/o feeling sugars were high and ran out of insulin at this time will put on his lantus he states it was 70 units and sliding scale. At this time he is not toxic, feet have no signs of infection, will Rx and DC home. BS is stable. Differential Diagnosis Differential Diagnoses: The differential diagnosis associated with the presentation includes lack of medications, hyperglycemia, homelessness Admission/Observation Consideration of admission/observation: Escalation of care including admission/observation considered labs reassuring, no signs of infection Lab Data [facility] Lab Attestation statement: I reviewed the patient's lab results. 10/09/23 00:45 10/09/23 00:45 Labs: Lab Results 10/09/23 10/09/23 Range/Units 00:39 00:45 WBC 6.1 (4.8-10.8) X10*3/uL RBC 5.03 (4.60-5.80) X10*6/uL Hgb 14.3 (14.0-18.0) g/dl Hct 43.0 (42.0-52.0) % MCV 85.5 (80.0-98.0) fL MCH 28.4 (27.0-33.0) pg MCHC 33.3 (31.0-36.0) g/dl RDW 12.7 (11.0-16.0) % Plt Count 303 (160-400) X10*3/uL MPV 10.0 (9.4-12.4) fL Immature Gran % (Auto) 0.2 (0.0-0.4) % Neut % (Auto) 52.4 (45-73) % Lymph % (Auto) 34.8 (20-40) % [place] % (Auto) 7.6 (2-11) % Eos % (Auto) 3.9 (0-4) % Baso % (Auto) 1.1 (0-2) % Lymph # (Auto) 2.1 (1.2-4.9) X10*3/uL [place] # (Auto) 0.5 (0.1-1.2) X10*3/uL Eos # (Auto) 0.2 (0.0-0.4) X10*3/uL Baso # (Auto) 0.1 (0.0-0.2) X10*3/uL Abs Immat Gran (auto) 0.01 (0.00-0.03) X10*3/uL Absolute Neuts (auto) 3.2 (2.0-8.3) x10*3/uL Absolute Nucleated RBC 0.000 (0.0-0.012) X10*3/uL Nucleated RBC % (auto) 0.0 (0.0-0.2) /100WBC Sodium 142 (135-145) mmol/L Potassium 3.3 (3.3-5.1) mmol/L Chloride 104 (96-108) mmol/L Carbon Dioxide 30 H (22-29) mmol/L Anion Gap 11 L (12-20) BUN 18 H (9-16) mg/dL Creatinine 1.16 (0.5-1.4) mg/dL Estim Creat Clear Calc 135.5 Estimated GFR > 60 POC Glucose 163 H (60-115) mg/dL Random Glucose 157 H (60-115) mg/dL Calcium 9.5 (8.4-10.2) mg/dL Total Bilirubin 0.9 (0.0-1.0) mg/dL AST 42 H (5-37) U/L ALT 38 (0-40) U/L Alkaline Phosphatase 75 (39-117) U/L Total Protein 7.3 (6.5-8.0) g/dL Albumin 4.4 (3.5-5.0) g/dL Beta-Hydroxybutyrate 0.15 (0.02-0.27) mmol/L External Record Review External record reviewed: Inpatient record Prescription Management I considered prescription management with: Other Discharge Plan Discharge Clinical Impression: Diabetes mellitus Patient Disposition: Home, Self-Care Instructions: Diabetes and Nutrition (ED) Additional Instructions: return for any worsening symptoms or concerns. prescriptions are in pharmacy make sure you follow up with your doctor. Prescriptions: New insulin glargine [Lantus Solostar U-100 Insulin] 100 unit/mL (3 mL) insulin pen 70 unit subcut QPM Qty: 15 0RF insulin lispro 100 unit/mL insulin pen 1 sliding scale dose subcut USEASDIRECTD Qty: 15 0RF No Action pantoprazole 20 mg tablet,delayed release (DR/EC) 20 mg PO Q12H Qty: 28 0RF amoxicillin 500 mg tablet 500 mg PO Q12H Qty: 28 0RF clarithromycin 500 mg tablet 500 mg PO Q12H Qty: 28 0RF insulin glargine [Lantus Solostar U-100 Insulin] 100 unit/mL (3 mL) insulin pen 100 unit subcut QAM Qty: 15 6RF insulin lispro 100 unit/mL insulin pen 1 sliding scale dose subcut USEASDIRECTD Qty: 15 6RF albuterol sulfate [ProAir HFA] 90 mcg/actuation HFA aerosol inhaler 2 puff inhalation Q4-6H PRN (Reason: bronchospasm) Qty: 8.5 0RF benzonatate 200 mg capsule 200 mg PO TID PRN (Reason: cough) Qty: 30 0RF insulin glargine [Lantus Solostar U-100 Insulin] 100 unit/mL (3 mL) insulin pen 90 unit subcut QAM Trulicity 4.5 mg/0.5 mL pen injector 4.5 mg subcut QWEEK atorvastatin 20 mg tablet 20 mg PO BEDTIME insulin lispro 100 unit/mL solution 1 sliding scale dose subcut USEASDIRECTD Qty: 10 0RF dulaglutide 4.5 mg/0.5 mL pen injector 4.5 mg subcut QWEEK Qty: 2 0RF metformin 1,000 mg tablet 1,000 mg PO BID
[2023-10-09 02:56] VITALS: BP 114/56; PULSE 82; RESP 16; TEMP 36.3; O2SAT 98
[2023-10-09 05:32] VITALS: BP 106/58; PULSE 87; RESP 16; TEMP 36.7; O2SAT 97
--- NOTE | 2023-10-09 07:38 | PC.NURSE ---
this rn utilized proofer at discharge pt ambulatory at discharge. pt calm and cooperative. pt provided with discharge packet pt verbalized understanding of discharge plan
== END 2023-10-09 07:39 | disposition home or self-care (01) ==
PROVIDERS: Emergency Provider Emergency Medicine
DX: E11.65 Type 2 diabetes mellitus with hyperglycemia (principal); Z79.4 Long term (current) use of insulin; Z79.899 Other long term (current) drug therapy
CPT/HCPCS: 36415; 80053; 82010; 82947; 85025; 99283; 99284

== ENCOUNTER 2023-10-09 07:09 | Outpatient (REF) | payer MEDICARE, SELFPAY ==
--- NOTE | ~2023-10-09 | XR_ITS ---
EXAMINATION: XR CHEST CLINICAL INFORMATION: Somnolence COMPARISON: Chest 02/19/2023 TECHNIQUE: 2 views of the chest were obtained. FINDINGS: No significant interval change. No significant abnormality is noted involving the heart, lungs, mediastinum, bony thorax or soft tissues. XR/XR chest 2V IMPRESSION: No acute cardiopulmonary disease.
== END 2023-10-09 07:10 | disposition home or self-care (01) ==
LOC: HO.XRAY 07:09
PROVIDERS: Visit Provider Physician Assistant
DX: R06.83 Snoring (principal); R40.0 Somnolence
CPT/HCPCS: 71046

== ENCOUNTER 2023-10-17 12:52 | Outpatient (AMB) | payer MEDICARE, SELFPAY ==
--- NOTE | 2023-10-17 13:14 | MHC.AMNUTRGE ---
Intake Intake Visit Reasons: (OV) F/U SWL Allergies No Known Allergies Allergy (Verified 09/18/23 13:55) HPI Nutrition Presentation Details Pt reports difficulty understanding other internal medicine physician Cass JAZMYNE used for todays interaction. Reason for consult elevated BMI Unstable SDH Reports food insecurity, housing and use of SNAP Diet Assmnt Details He is homeless lives in his car. 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 Has CGM, refrigerates insulin at his mothers house. He drives back and forth to [place] frequently. Likes Glucerna protein smart better (30g protein and same macros as Max). I recommended this for him as it may help balance blood glucose better. Having Protein bars and 1-2 salads per day. Either gets them at salad bars, or places like [employer] in [place] or [employer]. He always has fish, chicken, or tofu on his salads. seems to understand sources of lean protein. protein shake in the morning plus 2-3 bars salad with chicken A1c 8.9% in [place] 2022 down to 6.6% and pt is thrilled. E He watched the first nutrition class in office with internal medicine physician. We have not been successful in getting an internal medicine physician present to help him with the rest of the classes. Individual nutrition education regarding post op nutrition was provided today and apparently understood. Dietary counseling reduction Diagnosis Nutrition problem #1 overweight/obesity As related to (etiology) #1 excess energy intake and physical inactivity As evidenced by (sign/symptom) #1 high BMI Monitoring/Goals Nutrition problem monitoring total energy intake, level of knowledge/skill, total PRO intake and weight Outcome progress progressing Learning/Education Readiness to learn good Stages of change action Educational materials provided Yes Most Recent Diabetes Results: Cholesterol 125 mg/dL (<200) 10/08/23 HDL Cholesterol 42 mg/dL (>40) 10/08/23 Triglycerides 61 mg/dL (<150) 10/08/23 Creatinine 1.16 mg/dL (0.5-1.4) 10/09/23 Blood Urea Nitrogen 18 mg/dL (9-16) H 10/09/23 Sodium 142 mmol/L (135-145) 10/09/23 Potassium 3.3 mmol/L (3.3-5.1) 10/09/23 Chloride 104 mmol/L (96-108) 10/09/23 Carbon Dioxide 30 mmol/L (22-29) H 10/09/23 Calcium 9.5 mg/dL (8.4-10.2) 10/09/23 AST 42 U/L (5-37) H 10/09/23 ALT 38 U/L (0-40) 10/09/23 Total Protein 7.3 g/dL (6.5-8.0) 10/09/23 Albumin 4.4 g/dL (3.5-5.0) 10/09/23 [facility] Medical History Cochlear implant in place Surgical History History of surgery of head Social History Alcohol intake: never Patient Tobacco Use Status: Former Tobacco user Quit Date: 3yrs ago Assessment & Plan Assessment & Plan (1) Morbid obesity: Code(s): E66.01 - Morbid (severe) obesity due to excess calories (2) Diabetes mellitus: Code(s): E11.9 - Type 2 diabetes mellitus without complications Plan see below Patient Instructions: provided pt with bariatric book - told him to read and highlight questions. Provided all the quizzes and asked him to take them and come to next appt with Mariposa with questions. Provided pt with all essential post op nutrition information today and he appears to understand, was able to verbalize the information back to me in his own words. Today we slightly changed his plan as he reports feeling hungry 9am glucerna protein smart shake 12pm meal 3pm shake 5pm bar 8pm bar Will monitor blood sugars , treat anything less than 70 w juice, less than 100 with another bar. Coding Level of Care Code Nutr Indiv Subseq ([id number]) Diagnoses Morbid obesity E66.01 Diabetes mellitus E11.9 Time Spent (min) 60
== END 2023-10-17 14:11 | disposition home or self-care (01) ==
PROVIDERS: Visit Provider Dietitian, Registered
DX: E66.01 Morbid (severe) obesity due to excess calories (principal); E11.9 Type 2 diabetes mellitus without complications

== ENCOUNTER → 2023-10-17 12:52 | Outpatient (BNVA) | payer MEDICARE, SELFPAY | PROVIDERS: Visit Provider Dietitian, Registered | DX: E66.01 Morbid (severe) obesity due to excess calories (principal); E11.9 Type 2 diabetes mellitus without complications; Z71.3 Dietary counseling and surveillance; Z59.02 Unsheltered homelessness | CPT/HCPCS: 97803 ==

== ENCOUNTER 2023-10-19 20:41 | Emergency (ER) | payer MEDICARE, MEDICAID, SELFPAY ==
--- NOTE | ~2023-10-19 | XR_ITS ---
EXAMINATION: XR CHEST, 2 VIEWS CLINICAL INFORMATION: Chest pain, shortness of breath. COMPARISON: 10/09/2023 TECHNIQUE: PA and lateral views of the chest were obtained. FINDINGS: Mild dependent atelectasis. No consolidation, pneumothorax, or pleural effusion. Cardiac and mediastinal contours are normal. Pulmonary vasculature is unremarkable. Trachea is midline. Osseous structures are unremarkable. XR/XR chest 2V IMPRESSION: Mild bibasilar atelectasis. No acute pulmonary findings.
[2023-10-19 21:00] VITALS: BP 114/72; PULSE 106; RESP 16; TEMP 37.4; O2SAT 98; BMI 52.4
[2023-10-19 21:16] LABS: Glucose, Whole Blood 283 mg/dL (60-115)
--- NOTE | 2023-10-19 21:20 | MHC.EDTECH ---
Patient brought into triage area,labs,and urine obtained and sent to lab.
[2023-10-19 21:26] LABS: MANUAL DIFF FLAG NO
[2023-10-19 21:31] LABS: Basophils Absolute Auto 0.1 X10*3/uL (0.0-0.2); Eosinophils Absolute Auto 0.3 X10*3/uL (0.0-0.4); Hematocrit 40.6 % (42.0-52.0); Hemoglobin 13.4 g/dl (14.0-18.0); Imm Gran Abs Auto 0.01 X10*3/uL (0.00-0.03); Imm Gran Pct Auto 0.2 % (0.0-0.4); Lymphocytes Percent Auto 34.1 % (20-40); Mean Corpuscular Hemoglobin 28.2 pg (27.0-33.0); Mean Corpuscular Volume 85.3 fL (80.0-98.0); Mean Platelet Volume 10.2 fL (9.4-12.4); Monocytes Absolute Auto 0.4 X10*3/uL (0.1-1.2); Monocytes Percent Auto 7.6 % (2-11); Neutrophils Percent Auto 52.1 % (45-73); Platelet Count 274 X10*3/uL (160-400); Red Blood Count 4.76 X10*6/uL (4.60-5.80); Red Cell Distribution Width 12.2 % (11.0-16.0); White Blood Count 5.8 X10*3/uL (4.8-10.8)
[2023-10-19 21:32] LABS: Appearance Urine Clear; Color Urine Yellow; Glucose Urine UA >=1000 mg/dL (Negative); Leukocyte Esterase Urine Negative (Negative); Nitrite Urine Negative (Negative); PH 5.5 (5.0-9.0); Specific Gravity - Urine >= 1.030 (1.005-1.025); UMIC TRIGGER UACC YES; Urine Blood Negative (Negative); Urine Ketones Trace mg/dL (Negative); Urine Protein Negative (Neg-Trace)
[2023-10-19 21:44] LABS: Alanine Aminotransferase 33 U/L (0-40); Alkaline Phosphatase 69 U/L (39-117); Anion Gap 15 (12-20); Aspartate Amino Transferase 53 U/L (5-37); Bacteria Urine None Seen (None Seen); Bilirubin Total 0.6 mg/dL (0.0-1.0); Blood Urea Nitrogen 15 mg/dL (9-16); Calcium 9.2 mg/dL (8.4-10.2); Carbon Dioxide 23 mmol/L (22-29); Chloride 107 mmol/L (96-108); Creatinine Clr Calc Pharmacy 146.8; Estimated Glomerular Filt Rate > 60; Glucose Random 322 mg/dL (60-115); Hyaline Casts Urine 0-2 /LPF (0-2); Potassium 3.9 mmol/L (3.3-5.1); RBC Urine 0-2 /HPF (0-2); Sodium 141 mmol/L (135-145); Squamous Epithelial Cell Urine 0-2 /HPF (0-2); Total Protein 6.8 g/dL (6.5-8.0); UACC Culture Trigger YES
--- NOTE | 2023-10-19 22:07 | PC.NURSE ---
pt brought back to exam room, pt is hearing and visually impaired. pt given water, advanced nursing professor at bedside
[2023-10-19 23:04] VITALS: BP 113/60; PULSE 104; RESP 24; TEMP 36.7; O2SAT 96
--- NOTE | 2023-10-20 00:34 | ECG_ITS ---
Test Reason : CP Blood Pressure : / mmHG Vent. Rate : 099 BPM Atrial Rate : 099 BPM P-R Int : 146 ms QRS Dur : 086 ms QT Int : 342 ms P-R-T Axes : 050 052 049 degrees QTc Int : 438 ms Normal sinus rhythm Normal ECG When compared with ECG of 17-JUN-2023 03:54, No significant changes seen Referred By: Leilani Dejesus Electronically Signed By:JEROME CANA[place]
--- NOTE | 2023-10-20 00:40 | ED.GENADULT ---
HPI - General Adult General Chief complaint: General Medical Stated complaint: High blood sugar Time Seen by Provider: 10/19/23 23:41 Source: patient, RN notes reviewed and stunner Mode of arrival: ambulatory Limitations: language barrier History of Present Illness HPI narrative: This is a 28-year-old male, hearing impaired using Omani sign language, diabetes, obesity, who presents emergency department with complaints of hyperglycemia for the last 3 days. Patient states that he is felt as though his blood sugar has been running high, states that he ran out of his insulin 3 days ago. Stating that he has had a dry mouth. He also endorses constant chest pain and shortness breath. Also endorsing abdominal pain, denies fevers, chills, nasal congestion, sore throat, nausea, vomiting or diarrhea. Denies any other complaints or concerns at this time. MD complaint: Hyperglycemia Onset (ago): day(s) Relieving factors: none Exacerbating factors: none Associated symptoms: denies other symptoms Treatments prior to arrival: none Related Data Home Medications Medication Instructions Recorded Confirmed atorvastatin 20 mg tablet 20 mg PO BEDTIME 06/17/23 09/18/23 dulaglutide 4.5 mg/0.5 mL 4.5 mg subcut QWEEK 06/17/23 09/18/23 subcutaneous pen injector (Trulicity) insulin glargine 100 unit/mL (3 90 unit subcut QAM 06/17/23 09/18/23 mL) subcutaneous pen (Lantus Solostar U-100 Insulin) metformin 1,000 mg tablet 1,000 mg PO BID 09/18/23 09/18/23 Previous Rx's Medication Instructions Recorded albuterol sulfate 90 mcg/actuation 2 puff inhalation Q4-6H PRN 02/19/23 aerosol inhaler (ProAir HFA) bronchospasm #8.5 grams benzonatate 200 mg capsule 200 mg PO TID PRN cough #30 caps 02/19/23 dulaglutide 4.5 mg/0.5 mL 4.5 mg (0.5 mL) subcut QWEEK #2 mL 06/17/23 subcutaneous pen injector insulin lispro 100 unit/mL 1 sliding scale dose subcut 06/17/23 subcutaneous solution USEASDIRECTD #10 mL insulin glargine 100 unit/mL (3 100 unit subcut QAM #15 mL 07/06/23 mL) subcutaneous pen (Lantus Solostar U-100 Insulin) insulin lispro 100 unit/mL 1 sliding scale dose subcut 07/06/23 subcutaneous pen USEASDIRECTD #15 mL amoxicillin 500 mg tablet 500 mg PO Q12H #28 tabs 10/07/23 clarithromycin 500 mg tablet 500 mg PO Q12H #28 tabs 10/07/23 pantoprazole 20 mg tablet,delayed 20 mg PO Q12H #28 tabs 10/07/23 release cholecalciferol (vitamin D3) 50 50 mcg PO DAILY #90 caps 10/09/23 mcg (2,000 unit) capsule insulin glargine 100 unit/mL (3 70 unit (0.7 mL) subcut QPM #15 mL 10/09/23 mL) subcutaneous pen (Lantus Solostar U-100 Insulin) insulin lispro 100 unit/mL 1 sliding scale dose subcut 10/09/23 subcutaneous pen USEASDIRECTD #15 mL vitamin A palmitate 3,000 mcg 6,000 mcg (2 x 3,000 mcg (10,000 10/14/23 (10,000 unit) tablet unit)) PO DAILY 2 weeks #28 tabs insulin glargine 100 unit/mL (3 70 unit (0.7 mL) subcut QPM #15 mL 10/20/23 mL) subcutaneous pen (Lantus Solostar U-100 Insulin) insulin lispro 100 unit/mL 1 sliding scale dose subcut 10/20/23 subcutaneous pen USEASDIRECTD #15 mL Allergies Allergy/AdvReac Type Severity Reaction Status Date / Time No Known Allergies Allergy Verified 10/19/23 20:56 Review of Systems Review of Systems: Yes all other systems are reviewed and are negative Constitutional: Constitutional: Reports as per [facility] Past Medical History Attestation statement: The following information was validated with the patient. Medical History Cochlear implant in place Surgical History History of surgery of head Social History Social History Alcohol intake: never Patient Tobacco Use Status: Former Tobacco user Quit Date: 3yrs ago Advance Directives: No Advance Directives Information Provided: No Physical Exam ED Vital Signs: Vital Signs - 24 hr 10/19/23 21:00 10/19/23 23:04 10/20/23 02:00 Temperature 99.4 F 98.1 F 98.3 F Pulse Rate 106 H 104 H 97 Respiratory Rate 16 24 H 20 Blood Pressure 114/72 113/60 118/69 Pulse Oximetry 98 96 96 Oxygen Delivery Method Room Air Room Air Room Air BMI result Body Mass Index 52.4 Const General: cooperative, comfortable and no acute distress Orientation/consciousness: patient oriented x3 Limitations: no limitations HENMT Head: Yes normal to inspection, Yes normocephalic and Yes atraumatic Ears: hearing grossly normal bilaterally General nose exam: Normal external nose present Face and sinus: Yes normal facial exam Mouth: Normal oral and palatal mucosa present, oropharynx normal and moist mucous membranes Throat: Yes posterior oropharynx normal Eyes General: appearance normal, both eyes and all related structures Eyelids: Yes eyelids normal Conjunctivae: conjunctivae normal Sclerae: sclerae normal Pupils: Equal, round and reactive pupils present EOM: EOMs intact bilaterally Neck Neck: Yes normal visual inspection, Yes full ROM and Yes no lymphadenopathy Lymphatic: no lymphadenopathy noted Chest Chest palpation & inspection: normal inspection of the chest Resp Effort & Inspection: normal respiratory effort and able to speak in complete sentences Auscultation: clear to auscultation bilaterally, no crackles, no rales, no rhonchi and no wheezes Cardio Rate: regular rate Rhythm: regular rhythm Heart sounds: S1 normal heart sound present and S2 normal heart sound present GI Inspection: Yes normal to inspection Skin General skin exam: no rashes or lesions noted Trauma: no lacerations or abrasions Wounds: no wounds Neuro General: patient oriented x3 and moves all extremities Cranial nerves: Yes Equal, round and reactive pupils present Extrem General: Yes normal to inspection Right upper extremity: normal to inspection Left upper extremity: normal to inspection Right lower extremity: normal to inspection Left lower extremity: normal to inspection Course Reevaluation(s) Reevaluation #1: Patient re-evaluated, feeling much better, still receiving IV fluids. Will allow patient to receive full bag of IV fluids. And repeat point care. His workup today has been reassuring. Labs within normal limits, chest x-ray all were full, EKG nonischemic. He has not in DKA or have any evidence of HHS. Advised patient the importance of following up with the primary care physician. Advised patient to go to the [facility] in person if he is having trouble connecting to the Internet to find a primary care physician as they can better cyst him there. Refill of insulin sent to pharmacy. Patient understands and agrees with this plan. Sign-out given to my colleague, Dr. Corey, pending termination of IV fluids and repeat point of care. Time: 02:16 Medications Administered Discontinued Medications Generic Name Dose Route Start Last Admin Trade Name Freq PRN Reason Stop Dose Admin Sodium Chloride 1,000 mls @ 999 mls/hr 10/20/23 00:34 10/20/23 01:00 Ns IV 10/20/23 01:34 999 mls/hr .Q1H1M ONE Administration Medical Decision Making Medical Decision Making [facility] Narrative: This is a 28-year-old hearing impaired using O[place]i sign language male, history of diabetes, presenting to emergency department complaints of hyperglycemia. Patient endorsing some dizziness, as well as fatigue and thirst. Patient reports that he ran out of his insulin 3 days ago. On arrival, patient comfortable, vital signs within normal limits. Upon my initial assessment, patient resting comfortably, asleep, snoring, under no acute distress. Patient had labs prior to my assessment, revealing patient hyperglycemic at 283, no anion gap noted. Slight elevation in AST, otherwise chemistry within normal limits. No leukocytosis. Patient endorsing constant chest pain and shortness breath. Will obtain EKG and chest x-ray. IV fluids also will be administered given dizziness. Differential Diagnosis Differential Diagnoses: The differential diagnosis associated with the presentation includes Hyperglycemia, ACS-unlikely dehydration, electrolyte derangement. Admission/Observation Consideration of admission/observation: Escalation of care including admission/observation considered Escalation of care including admission/observation considered however given workup today not warranted at this time. Lab Data [facility] Lab Attestation statement: I reviewed the patient's lab results. No leukocytosis, normocytic anemia noted with an H&H of 13.4/40.6, chemistry revealing hyperglycemia initially at 3:22 a.m., improved with point of care 2-72. AST slightly elevated at 53 > appears to be his baseline. Normal troponin. Urine revealing high specific gravity as well as high glucosuria 10/19/23 21:19 10/19/23 21:19 Labs: Lab Results 10/19/23 10/19/23 10/20/23 Range/Units 20:59 21:19 00:52 WBC 5.8 (4.8-10.8) X10*3/uL RBC 4.76 (4.60-5.80) X10*6/uL Hgb 13.4 L (14.0-18.0) g/dl Hct 40.6 L (42.0-52.0) % MCV 85.3 (80.0-98.0) fL MCH 28.2 (27.0-33.0) pg MCHC 33.0 (31.0-36.0) g/dl RDW 12.2 (11.0-16.0) % Plt Count 274 (160-400) X10*3/uL MPV 10.2 (9.4-12.4) fL Immature Gran % (Auto) 0.2 (0.0-0.4) % Neut % (Auto) 52.1 (45-73) % Lymph % (Auto) 34.1 (20-40) % [place] % (Auto) 7.6 (2-11) % Eos % (Auto) 5.0 H (0-4) % Baso % (Auto) 1.0 (0-2) % Lymph # (Auto) 2.0 (1.2-4.9) X10*3/uL [place] # (Auto) 0.4 (0.1-1.2) X10*3/uL Eos # (Auto) 0.3 (0.0-0.4) X10*3/uL Baso # (Auto) 0.1 (0.0-0.2) X10*3/uL Abs Immat Gran (auto) 0.01 (0.00-0.03) X10*3/uL Absolute Neuts (auto) 3.0 (2.0-8.3) x10*3/uL Absolute Nucleated RBC 0.000 (0.0-0.012) X10*3/uL Nucleated RBC % (auto) 0.0 (0.0-0.2) /100WBC Sodium 141 (135-145) mmol/L Potassium 3.9 (3.3-5.1) mmol/L Chloride 107 (96-108) mmol/L Carbon Dioxide 23 (22-29) mmol/L Anion Gap 15 (12-20) BUN 15 (9-16) mg/dL Creatinine 1.02 (0.5-1.4) mg/dL Estim Creat Clear Calc 146.8 Estimated GFR > 60 POC Glucose 283 H 272 H (60-115) mg/dL Random Glucose 322 H (60-115) mg/dL Calcium 9.2 (8.4-10.2) mg/dL Total Bilirubin 0.6 (0.0-1.0) mg/dL AST 53 H (5-37) U/L ALT 33 (0-40) U/L Alkaline Phosphatase 69 (39-117) U/L Troponin I High Sens < 2.7 (<3.5-35.0) ng/L Total Protein 6.8 (6.5-8.0) g/dL Albumin 4.0 (3.5-5.0) g/dL Urine Color Yellow Urine Appearance Clear Urine pH 5.5 (5.0-9.0) Ur Specific [place] >= 1.030 H (1.005-1.025) Urine Protein Negative (Neg-Trace) mg/dL Urine Glucose (UA) >=1000 H (Negative) mg/dL Urine Ketones Trace (Negative) mg/dL Urine Blood Negative (Negative) Urine Nitrite Negative (Negative) Ur Leukocyte Esterase Negative (Negative) Urine RBC 0-2 (0-2) /HPF Urine WBC 11-20 (0-5) /HPF Ur Squamous Epith Cells 0-2 (0-2) /HPF Urine Bacteria None Seen (None Seen) Hyaline Casts 0-2 (0-2) /LPF Independent Interpretation I performed an independent interpretation of an: EKG Interpretation: EKG normal sinus rhythm at a ventricular rate of 99 beats per minute, no ST elevation or depression, TX interval 146, QT QTC 342/438. Radiology Impression Discussion of test interpretation with radiology: I have reviewed the radiologist's reading. Radiologist Impression: EXAMINATION: XR CHEST CLINICAL INFORMATION: Somnolence COMPARISON: Chest 02/19/2023 TECHNIQUE: 2 views of the chest were obtained. FINDINGS: No significant interval change. No significant abnormality is noted involving the heart, lungs, mediastinum, bony thorax or soft tissues. XR/XR chest 2V IMPRESSION: No acute cardiopulmonary disease. Discharge Plan Discharge Clinical Impression: Hyperglycemia due to diabetes mellitus Patient Disposition: Still a Patient Instructions: What is Insulin (ED), How to Give an Insulin Injection (ED), Basic Carbohydrate Counting (DC), Diabetic Hyperglycemia (ED), Diabetes and Exercise (ED), Type 2 Diabetes Management for Adults (ED) Additional Instructions: You were seen in the emergency department due to elevated blood sugar. Your sugar improved after receiving IV fluids. Your chest x-ray does not show a pneumonia. Your EKG was reassuring. Please use insulin as directed. It is very important that you follow-up with the primary care physician. You may show up to the [facility] to help facilitate this appointment. I am recommending you go on Saturday as it is very important that you have a primary care physician to manage your diabetes. I am also giving your referral to endocrinology. Drink plenty of fluids get plenty of rest. If any new or worsening symptoms occur including but not limited to chest pain, shortness of breath, please return for re-evaluation. Prescriptions: New insulin glargine [Lantus Solostar U-100 Insulin] 100 unit/mL (3 mL) insulin pen 70 unit subcut QPM Qty: 15 2RF insulin lispro 100 unit/mL insulin pen 1 sliding scale dose subcut USEASDIRECTD Qty: 15 0RF No Action pantoprazole 20 mg tablet,delayed release (DR/EC) 20 mg PO Q12H Qty: 28 0RF amoxicillin 500 mg tablet 500 mg PO Q12H Qty: 28 0RF clarithromycin 500 mg tablet 500 mg PO Q12H Qty: 28 0RF cholecalciferol (vitamin D3) 50 mcg (2,000 unit) capsule 50 mcg PO DAILY Qty: 90 3RF vitamin A palmitate 3,000 mcg (10,000 unit) tablet 6,000 mcg PO DAILY 14 Days Qty: 28 0RF insulin glargine [Lantus Solostar U-100 Insulin] 100 unit/mL (3 mL) insulin pen 100 unit subcut QAM Qty: 15 6RF insulin lispro 100 unit/mL insulin pen 1 sliding scale dose subcut USEASDIRECTD Qty: 15 6RF albuterol sulfate [ProAir HFA] 90 mcg/actuation HFA aerosol inhaler 2 puff inhalation Q4-6H PRN (Reason: bronchospasm) Qty: 8.5 0RF benzonatate 200 mg capsule 200 mg PO TID PRN (Reason: cough) Qty: 30 0RF insulin glargine [Lantus Solostar U-100 Insulin] 100 unit/mL (3 mL) insulin pen 90 unit subcut QAM Trulicity 4.5 mg/0.5 mL pen injector 4.5 mg subcut QWEEK atorvastatin 20 mg tablet 20 mg PO BEDTIME insulin lispro 100 unit/mL solution 1 sliding scale dose subcut USEASDIRECTD Qty: 10 0RF dulaglutide 4.5 mg/0.5 mL pen injector 4.5 mg subcut QWEEK Qty: 2 0RF insulin glargine [Lantus Solostar U-100 Insulin] 100 unit/mL (3 mL) insulin pen 70 unit subcut QPM Qty: 15 0RF insulin lispro 100 unit/mL insulin pen 1 sliding scale dose subcut USEASDIRECTD Qty: 15 0RF metformin 1,000 mg tablet 1,000 mg PO BID Referrals: [facility] [place] [place] [facility] [Provider Group] Center,[facility] [Physician] -
[2023-10-20 00:57] LABS: Glucose, Whole Blood 272 mg/dL (60-115)
[2023-10-20] MEDS: 0.9 % Sodium Chloride 1,000 ML 999 ML IV (01:00)
[2023-10-20 02:00] VITALS: BP 118/69; PULSE 97; RESP 20; TEMP 36.8; O2SAT 96
[2023-10-20 02:06] LABS: Troponin-I High Sensitivity < 2.7 ng/L (<3.5-35.0)
[2023-10-20 03:11] LABS: Glucose, Whole Blood 231 mg/dL (60-115)
[2023-10-20 06:13] VITALS: BP 140/73; PULSE 97; RESP 18; TEMP 36.6; O2SAT 96
== END 2023-10-20 06:15 | disposition home or self-care (01) ==
PROVIDERS: Emergency Medicine; Physician Assistant Medical; Emergency Provider Emergency Medicine
DX: E11.65 Type 2 diabetes mellitus with hyperglycemia (principal); R07.89 Other chest pain; R11.2 Nausea with vomiting, unspecified; Z79.899 Other long term (current) drug therapy; Z79.4 Long term (current) use of insulin
CPT/HCPCS: 36415; 71046; 80053; 81001; 82947; 84484; 85025; 87086; 93005; 96360; 96361; 99284

== ENCOUNTER → 2023-10-20 00:34 | Outpatient (BNV) | payer MEDICARE, SELFPAY | PROVIDERS: Emergency Provider Emergency Medicine; Visit Provider Internal Medicine | DX: R07.9 Chest pain, unspecified (principal) | CPT/HCPCS: 93010 ==

== ENCOUNTER 2023-10-21 21:32 | Emergency (ER) | payer MEDICARE, SELFPAY ==
[2023-10-21 21:41] VITALS: BP 119/67; PULSE 98; RESP 16; TEMP 36.5; O2SAT 100; BMI 45.2
[2023-10-21 23:37] LABS: Glucose, Whole Blood 431 mg/dL (60-115)
[2023-10-22] MEDS: Insulin Lispro 100 UNIT/ML 3 ML VIAL 14 UNIT SUBCUT (02:04)
[2023-10-22] MEDS: Insulin Glargine,Hum.rec.anlog 100 UNIT/ML 10 ML VIAL 90 UNIT SUBCUT (02:04)
[2023-10-22 02:10] VITALS: BP 100/57; PULSE 96; RESP 18; O2SAT 98
[2023-10-22 02:17] LABS: Glucose, Whole Blood 356 mg/dL (60-115)
--- NOTE | 2023-10-22 04:03 | ED.GENADULT ---
HPI - General Adult General Chief complaint: General Medical Stated complaint: states out of medicine high blood sugar Time Seen by Provider: 10/22/23 01:42 Source: patient Mode of arrival: ambulatory Limitations: language barrier History of Present Illness HPI narrative: Patient hard of hearing status post cochlear implant diabetic lost his insulin and other medications for last 4 days. Patient is homeless on arrival patient's blood sugar was elevated to 431 Turkmen sign language was used for interpretation Related Data Home Medications Medication Instructions Recorded Confirmed atorvastatin 20 mg tablet 20 mg PO BEDTIME 06/17/23 09/18/23 dulaglutide 4.5 mg/0.5 mL 4.5 mg subcut QWEEK 06/17/23 09/18/23 subcutaneous pen injector (Trulicity) insulin glargine 100 unit/mL (3 90 unit subcut QAM 06/17/23 09/18/23 mL) subcutaneous pen (Lantus Solostar U-100 Insulin) metformin 1,000 mg tablet 1,000 mg PO BID 09/18/23 09/18/23 Previous Rx's Medication Instructions Recorded albuterol sulfate 90 mcg/actuation 2 puff inhalation Q4-6H PRN 02/19/23 aerosol inhaler (ProAir HFA) bronchospasm #8.5 grams benzonatate 200 mg capsule 200 mg PO TID PRN cough #30 caps 02/19/23 dulaglutide 4.5 mg/0.5 mL 4.5 mg (0.5 mL) subcut QWEEK #2 mL 06/17/23 subcutaneous pen injector insulin lispro 100 unit/mL 1 sliding scale dose subcut 06/17/23 subcutaneous solution USEASDIRECTD #10 mL insulin glargine 100 unit/mL (3 100 unit subcut QAM #15 mL 07/06/23 mL) subcutaneous pen (Lantus Solostar U-100 Insulin) insulin lispro 100 unit/mL 1 sliding scale dose subcut 07/06/23 subcutaneous pen USEASDIRECTD #15 mL amoxicillin 500 mg tablet 500 mg PO Q12H #28 tabs 10/07/23 clarithromycin 500 mg tablet 500 mg PO Q12H #28 tabs 10/07/23 pantoprazole 20 mg tablet,delayed 20 mg PO Q12H #28 tabs 10/07/23 release cholecalciferol (vitamin D3) 50 50 mcg PO DAILY #90 caps 10/09/23 mcg (2,000 unit) capsule insulin glargine 100 unit/mL (3 70 unit (0.7 mL) subcut QPM #15 mL 10/09/23 mL) subcutaneous pen (Lantus Solostar U-100 Insulin) insulin lispro 100 unit/mL 1 sliding scale dose subcut 10/09/23 subcutaneous pen USEASDIRECTD #15 mL vitamin A palmitate 3,000 mcg 6,000 mcg (2 x 3,000 mcg (10,000 10/14/23 (10,000 unit) tablet unit)) PO DAILY 2 weeks #28 tabs insulin glargine 100 unit/mL (3 70 unit (0.7 mL) subcut QPM #15 mL 10/20/23 mL) subcutaneous pen (Lantus Solostar U-100 Insulin) insulin lispro 100 unit/mL 1 sliding scale dose subcut 10/20/23 subcutaneous pen USEASDIRECTD #15 mL insulin glargine 100 unit/mL (3 70 unit (0.7 mL) subcut QPM #15 mL 10/22/23 mL) subcutaneous pen (Lantus Solostar U-100 Insulin) insulin lispro 100 unit/mL 1 sliding scale dose subcut 10/22/23 subcutaneous pen (Humalog KwikPen USEASDIRECTD #15 mL (U-100) Insulin) Allergies Allergy/AdvReac Type Severity Reaction Status Date / Time No Known Allergies Allergy Verified 10/19/23 20:56 Review of Systems Review of Systems: Yes all other systems are reviewed and are negative PMFSH Past Medical History Medical History Cochlear implant in place Surgical History History of surgery of head Social History Social History Alcohol intake: never Patient Tobacco Use Status: Former Tobacco user Quit Date: 3yrs ago Advance Directives: No Advance Directives Information Provided: No Physical Exam ED Vital Signs: Vital Signs - 24 hr 10/21/23 21:41 10/22/23 02:10 10/22/23 04:58 Temperature 97.7 F 98.7 F Pulse Rate 98 96 87 Respiratory Rate 16 18 16 Blood Pressure 119/67 100/57 L 117/60 Pulse Oximetry 100 98 98 Oxygen Delivery Method Room Air Room Air Room Air 10/22/23 05:22 Temperature 98.7 F Pulse Rate 87 Respiratory Rate 16 Blood Pressure 117/60 Pulse Oximetry 98 Oxygen Delivery Method Room Air BMI result Body Mass Index 45.2 Appearance: Alert. Oriented X3. No acute distress. Eyes: PERRLA, No Nystagmus ENT: Pharynx normal. Oral Mucosa moist hard of hearing sign Neck: Normal inspection. Neck supple. CVS: Normal heart rate and rhythm. Pulses normal. Respiratory: No respiratory distress. Equal air entry bilateral, no wheezing/rales/rhonchi Abdomen: Soft and nontender. Bowel sounds are present, no mass palpable, no CVA tenderness Skin: Skin warm and dry. Normal skin color. Normal skin turgor. Extremities: No lower extremity edema. No calf tenderness Neuro: Oriented X 3. No motor deficit. No sensory deficit.No cerebellar signs , cranial nerves II-XII intact Medications Administered Discontinued Medications Generic Name Dose Route Start Last Admin Trade Name Pedroq PRN Reason Stop Dose Admin Insulin Glargine 90 unit 10/22/23 01:50 10/22/23 02:04 Insulin Glargine,Hum.Rec.Anlog 100 Unit/Ml 10 Ml Vial SUBCUT 10/22/23 01:51 90 unit ONCE ONE Administration Insulin Human Lispro 14 unit 10/22/23 01:43 10/22/23 02:04 Insulin Lispro 100 Unit/Ml 3 Ml Vial SUBCUT 10/22/23 01:44 14 unit ONCE ONE Administration Medical Decision Making Medical Decision Making [facility] Narrative: Patient diabetic type 2 insulin-dependent lately lives in his car somehow lost his medication been here once for the same prescription was given unable to get it this time patient was given handwritten prescription which he says he will follow with pcp in the ER patient received Lantus on Humalog last blood glucose was 271 Differential Diagnosis Differential Diagnoses: The differential diagnosis associated with the presentation includes Hyperglycemia/or hyperosmolar/ketotic Lab Data [facility] Lab Attestation statement: I reviewed the patient's lab results. Labs: Lab Results 10/21/23 10/22/23 10/22/23 Range/Units 23:33 02:13 04:08 POC Glucose 431 H* 356 H* 271 H (60-115) mg/dL Discharge Plan Discharge Clinical Impression: Hyperglycemia due to diabetes mellitus Patient Disposition: Home, Self-Care Instructions: Diabetic Hyperglycemia (ED) Additional Instructions: Take your insulin on time Paper prescription was given to you please take it to the pharmacy and get your insulin and take it as advised Prescriptions: New insulin glargine [Lantus Solostar U-100 Insulin] 100 unit/mL (3 mL) insulin pen 70 unit subcut QPM Qty: 15 0RF insulin lispro [Humalog KwikPen Insulin] 100 unit/mL insulin pen 1 sliding scale dose subcut USEASDIRECTD Qty: 15 0RF No Action pantoprazole 20 mg tablet,delayed release (DR/EC) 20 mg PO Q12H Qty: 28 0RF amoxicillin 500 mg tablet 500 mg PO Q12H Qty: 28 0RF clarithromycin 500 mg tablet 500 mg PO Q12H Qty: 28 0RF cholecalciferol (vitamin D3) 50 mcg (2,000 unit) capsule 50 mcg PO DAILY Qty: 90 3RF vitamin A palmitate 3,000 mcg (10,000 unit) tablet 6,000 mcg PO DAILY 14 Days Qty: 28 0RF insulin glargine [Lantus Solostar U-100 Insulin] 100 unit/mL (3 mL) insulin pen 100 unit subcut QAM Qty: 15 6RF insulin lispro 100 unit/mL insulin pen 1 sliding scale dose subcut USEASDIRECTD Qty: 15 6RF albuterol sulfate [ProAir HFA] 90 mcg/actuation HFA aerosol inhaler 2 puff inhalation Q4-6H PRN (Reason: bronchospasm) Qty: 8.5 0RF benzonatate 200 mg capsule 200 mg PO TID PRN (Reason: cough) Qty: 30 0RF insulin glargine [Lantus Solostar U-100 Insulin] 100 unit/mL (3 mL) insulin pen 90 unit subcut QAM Trulicity 4.5 mg/0.5 mL pen injector 4.5 mg subcut QWEEK atorvastatin 20 mg tablet 20 mg PO BEDTIME insulin lispro 100 unit/mL solution 1 sliding scale dose subcut USEASDIRECTD Qty: 10 0RF dulaglutide 4.5 mg/0.5 mL pen injector 4.5 mg subcut QWEEK Qty: 2 0RF insulin glargine [Lantus Solostar U-100 Insulin] 100 unit/mL (3 mL) insulin pen 70 unit subcut QPM Qty: 15 0RF insulin lispro 100 unit/mL insulin pen 1 sliding scale dose subcut USEASDIRECTD Qty: 15 0RF insulin glargine [Lantus Solostar U-100 Insulin] 100 unit/mL (3 mL) insulin pen 70 unit subcut QPM Qty: 15 2RF insulin lispro 100 unit/mL insulin pen 1 sliding scale dose subcut USEASDIRECTD Qty: 15 0RF metformin 1,000 mg tablet 1,000 mg PO BID Interventions: ED Discharge Assessment Last Done: 10/22/23 05:22 Discharge Date/Time: 10/22/23 05:00
[2023-10-22 04:11] LABS: Glucose, Whole Blood 271 mg/dL (60-115)
--- NOTE | 2023-10-22 04:49 | PC.NURSE ---
This RN contacting [facility]. Per [facility], pt filled his prescription for Lispro on 10/03 and Lantus on 09/30. Pt stating that he lost his insulin. MD at bedside discussing plan for DC with patient. Plan for pt to bring paper RX to pharmacy for a one time fill. All instructions explained to pt with the use of Hermes.
[2023-10-22 04:58] VITALS: BP 117/60; PULSE 87; RESP 16; TEMP 37.1; O2SAT 98
[2023-10-22 05:22] VITALS: BP 117/60; PULSE 87; RESP 16; TEMP 37.1; O2SAT 98
== END 2023-10-22 05:00 | disposition home or self-care (01) ==
PROVIDERS: Emergency Provider Internal Medicine
DX: E11.65 Type 2 diabetes mellitus with hyperglycemia (principal); Z59.02 Unsheltered homelessness; Z96.21 Cochlear implant status
CPT/HCPCS: 82947; 99283

== ENCOUNTER 2023-10-24 13:28 | Outpatient (AMB) | payer MEDICARE, SELFPAY ==
--- NOTE | 2023-10-24 12:53 | MHC.OFFVISWM ---
Intake VS Expanded 10/24/23 13:36 BP 142/78 H Blood Pressure Location Rt brachial Blood Pressure Position Sitting Pulse 117 H Pulse Source Pulse Oximeter Temp 97.6 F Temperature Source Tympanic Pulse Oximetry 94 Oxygen Delivery Method Room Air Height 5 ft 11 in Weight 315 lb 9.6 oz BMI 44.0 Body Fat % 37.9 Body Fat Mass 119.4 Fat Free Mass 196.0 Visceral Fat Rating 21.0 Body Water % 47.4 Body Water Mass 149.6 Muscle Mass/Score 186.6 Basal Metabolic Rate/Score 2,796 Intake Visit Reasons: (OV) F/U SWL Allergies No Known Allergies Allergy (Verified 10/24/23 13:39) HPI HPI Comments History of Present Illness Details This is the patients second appt for SWL. Starting weight was 305 lbs on 09/18/23. He has gained 10 lbs. He is heaaring impaired with cochlearimplants and needs team lead for all appointments. [place] [facility] [place] 10/21 due to hyperglycemia due to having lost his insulin. Patient was given new prescription on 10/08 but did not fill it until today (10/23). He states he is living with a room mate and has a refrigerator. Gets $200 per month in food stamps - got 60 shakes and aobut 8 bars. Is working at [employer] and will start getting paid tomorrow. Meal plan: 9am - protein shake 12pm - fish or chicken or shrimp and vegetables - 12 forks each, 1 tsp oil and vinegar 3pm - shake 5pm - a bar 8pm - another bar Blood sugar - 130 this am. Exercise plan: started last week Gym - 4 d/ week. 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 Pre op work up completed as follows: SWL classes - 03/05 - still needs to take test BH appts - not yet RD appts - 10/16 H pylori - POSITIVE 10/02/23 ----NEEDS RETEST Labs - anemia, AIC = 6.6, Vit A and Vit D deficient CXR and ECG - both normal ULS -not scheduled yet UGI - 11/19 - UGI SS - not scheduled [facility] History Cochlear implant in place Surgical History History of surgery of head Social History Alcohol intake: never Patient Tobacco Use Status: Former Tobacco user Quit Date: 3yrs ago Assessment & Plan Assessment & Plan (1) Morbid obesity: Code(s): E66.01 - Morbid (severe) obesity due to excess calories Plan: Patient has gained 10 lbs - I believe this was due to him not having his insulin and not exercising. He is still unhoused and has many barriers to overcome. For now he will weigh himself at the gym and text a photo of his weight to Dr Swati Laughlin is setting up this appointment in the office. He will purchase body comp analyzer when he is able. [facility] No changes made to exercise or meal plan today. He states he can continue doing both of these. Patient is morbidly obese and is not considered stable at this time. I spent 30 minutes in total with patient reviewing/updating records, examining the patient and counseling the patient on weight management as detailed above. (2) Diabetes mellitus: Code(s): E11.9 - Type 2 diabetes mellitus without complications Plan: should get in control now that he has insulin again. (3) Hearing impaired: Code(s): H91.90 - Unspecified hearing loss, unspecified ear Plan: see above Medications: New iron,carbonyl-vitamin C 65 mg iron- 125 mg (Vitron-C) 1 tab PO BEDTIME 90 tabs 3RF Coding Level of Care Code Est Pt Level 4 (51296) Diagnoses Morbid obesity E66.01 Diabetes mellitus E11.9 Hearing impaired H91.90
[2023-10-24 13:36] VITALS: BP 142/78; PULSE 117; TEMP 36.4; O2SAT 94; BMI 44.0
== END 2023-10-24 14:13 | disposition home or self-care (01) ==
PROVIDERS: Visit Provider Physician Assistant
DX: E66.01 Morbid (severe) obesity due to excess calories (principal); Z68.41 Body mass index [BMI] 40.0-44.9, adult; E11.9 Type 2 diabetes mellitus without complications; H91.93 Unspecified hearing loss, bilateral
CPT/HCPCS: 99214

== ENCOUNTER → 2023-10-24 13:28 | Outpatient (BNVA) | payer MEDICARE, SELFPAY | PROVIDERS: Visit Provider Physician Assistant | DX: E66.01 Morbid (severe) obesity due to excess calories (principal); E11.9 Type 2 diabetes mellitus without complications; H91.90 Unspecified hearing loss, unspecified ear; Z68.41 Body mass index [BMI] 40.0-44.9, adult | CPT/HCPCS: 99212 ==